=== PATIENT | female | born 1940 | race Caucasian/White ===

== ENCOUNTER → 2020-01-15 11:27 | Outpatient (BNVA) | payer MEDICARE, OTHER, SELFPAY | PROVIDERS: PCP Nurse Practitioner Family; Visit Provider Nurse Practitioner Family | DX: Z20.828 Contact with and (suspected) exposure to other viral communicable diseases (principal) | CPT/HCPCS: 87635 ==

== ENCOUNTER 2020-01-17 11:25 | Inpatient (IN) | payer MEDICARE, OTHER, SELFPAY ==
--- NOTE | 2020-01-17 11:35 | XRR_ITS ---
PROCEDURE INFORMATION: Exam: XR Chest, 1 View Exam date and time: 01/17/2020 11:36 AM Age: 79 years old Clinical indication: Fever TECHNIQUE: Imaging protocol: XR of the chest Views: 1 view. COMPARISON: No relevant prior studies available. FINDINGS: Lungs: Moderately hyperaerated lungs consistent with deep inspiratory effort vs significant reactive airway disease vs moderate COPD . Pleural space: Unremarkable. No pleural effusion. No pneumothorax. Heart/Mediastinum: Unremarkable. No cardiomegaly. Vasculature: Calcification of the thoracic aorta and/or great vessels consistent with atherosclerotic vessel disease. Bones/joints: Unremarkable. XR/XR chest 1V portable [id number] IMPRESSION: Moderately hyperaerated lungs consistent with deep inspiratory effort vs significant reactive airway disease vs moderate COPD .
[2020-01-17 11:39] VITALS: BP 108/46; PULSE 95; RESP 18; TEMP 36.7; O2SAT 95; BMI 24.0
--- NOTE | 2020-01-17 11:43 | W.ED.FEVER ---
HPI - Fever General: Chief Complaint: Fever Stated Complaint: TEMP, FATIGUE Time Seen by Provider: 01/17/20 11:33 Source: patient Mode of arrival: ambulatory Limitations: no limitations History of Present Illness: HPI Narrative: 79-year-old female who has a fever over the last week. She states she had a fever up to 103 along with generalized body aches and some weakness. She denies any cough. She denies any dysuria. She denies any chest or abdominal pain. She states she just felt weak and ill. She was seen 2 days ago and had a negative COVID test. Patient states that overnight she felt lightheaded and had some low blood pressures. Patient is normotensive here with normal vitals here. Associated symptoms: Deny abdominal pain, chest pain, diarrhea, dysuria, nausea or vomiting Review of Systems Const: Reports: fever(s) Eyes: Denies: blurry vision or eye discomfort ENMT: Denies: throat pain or dental pain Card: Denies: chest pain Resp: Denies: dyspnea GI: Denies: abdominal pain, nausea, vomiting or diarrhea : Denies: dysuria Musc: Denies: neck pain or back pain Skin/Breast: Denies: rash Neuro: Reports: weakness in extremities Psych: Denies: depression Tato/Lymph: Denies: easy bruising All/Imm: Denies: urticaria PFSH ED PFSH: Medical History (Updated 01/17/20 @ 15:11 by Laila Santos MD) Abdominal aortic aneurysm (AAA) 3.0 cm to 5.0 cm in diameter in female Breast cancer, right Emphysema lung Surgical History (Updated 01/17/20 @ 15:06 by Jamar Matt MD) H/O mastectomy Social History (Updated 01/17/20 @ 10:16 by Fabi Baxter LPN) Smoking and tobacco status: never smoked Alcohol intake: never Physical Exam Const: COMMON NORMALS: no acute distress, patient oriented x3 and healthy appearing HENMT: COMMON NORMALS: normocephalic and atraumatic HEAD & SCALP: normocephalic and atraumatic Eye: COMMON NORMALS: Equal, round and reactive pupils present and EOMs intact bilaterally PUPIL: Yes Equal, round and reactive pupils present Neck/C-Spine: COMMON NORMALS: full ROM and supple Chest: COMMONS NORMALS: normal inspection of the chest and normal palpation of entire chest wall Resp: COMMON NORMALS: normal respiratory effort, No retractions, No use of accessory muscles and clear to auscultation bilaterally AUSCULTATION: clear to auscultation bilaterally Cardio: COMMON NORMALS: regular rate, regular rhythm and No murmurs present (Cardio) RATE: regular rate RHYTHM: regular rhythm GI: COMMON NORMALS: Normal to inspection, nondistended, normoactive bowel sounds present, Soft to palpation, non-tender and no masses PALPATION: Yes Soft to palpation Extremity: COMMON NORMALS: normal to inspection and full ROM Neuro: COMMON NORMALS: patient oriented x3, moves all extremities and no focal motor deficits Psych: COMMON NORMALS: mental status grossly normal, Normal thought process present and cooperative THOUGHT PROCESS: Normal thought process present Skin: COMMON NORMALS: no rashes or lesions noted and no wounds GENERAL SKIN EXAM: no rashes or lesions noted Course Vital Signs: Vital signs: Vital Signs Temperature 98.1 F 01/17/20 11:39 Pulse Rate 104 H 01/17/20 13:47 Respiratory Rate 16 01/17/20 13:47 Blood Pressure 121/50 01/17/20 13:47 Pulse Oximetry 97 01/17/20 13:47 MDM - Fever MDM Narrative: Medical decision making narrative: 79-year-old female who presents here with a fever. Patient had a recent negative COVID test 2 days ago. Patient here has pancytopenia. I did ewing scan her looking for possible cancer and it was negative. I spoke to hospitalist will admit and follow blood cultures. Patient started on antibiotics. She has been stable here with normal blood pressures. Lab Data: Labs: Lab Results 01/17/20 01/17/20 01/17/20 Range/Units 11:55 11:55 11:55 WBC 1.8 L (4.0-10.0) 10^3/ uL RBC 4.04 L (4.1-5.3) 10^6/u L Hgb 11.9 (11.5-15.3) g/dL Hct 36.6 L (37.0-47.0) % MCV 90.6 (81-99) fL MCH 29.5 (28.0-34.0) pg MCHC 32.5 (30.0-36.0) g/dL RDW 13.1 (12.1-15.1) % Plt Count 61 L (130-400) 10^3/c mm MPV 12.2 H (7.4-10.4) fL Neut % (Auto) 92.2 % Lymph % (Auto) 5.5 % [place] % (Auto) 1.1 % Eos % (Auto) 0.0 % Baso % (Auto) 0.6 % Neut # (Auto) 1.67 L (1.8-7.7) 10^3/u L Lymph # (Auto) 0.1 L (0.8-4.8) 10^3/u L [place] # (Auto) 0.0 L (0.2-0.9) 10^3/u L Eos # (Auto) 0.0 (0.0-0.8) 10^3/u L Baso # (Auto) 0.0 (0.0-0.1) 10^3/u L Nucleated RBC % (a uto) 0 % Nucleated RBCs # 0.0 /100WBC Sodium 131 L (136-145) mmol/L Potassium 3.3 L (3.5-5.1) mmol/L Chloride 96 L (98-107) mmol/L Carbon Dioxide 25 (22-29) mmol/L Anion Gap 13.3 (5-19) BUN 18 (8-23) mg/dL Creatinine 0.8 (0.5-0.9) mg/dL GFR Calculation Not Reportable Glucose 132 H (65-115) mg/dL Calculated Osmolal ity 276 L (285-295) mOsm/k g Lactate 1.5 (0.5-2.2) mmol/L Calcium 8.5 (8.5-10.5) mg/dL Total Bilirubin 2.0 H (0.15-1.2) mg/dL AST 806 H (0-32) U/L ALT 349 H (0-33) U/L Alkaline Phosphata se 462 H (35-105) IU/L Total Protein 6.4 L (6.6-8.7) g/dL Albumin 3.7 (3.5-5.2) g/dL Globulin 2.7 (1.3-4.6) g/dL Urine Color (Yellow) Urine Appearance (CLEAR) Urine pH (5-7) Ur Specific Gravit y (1.005-1.030) Urine Protein (Negative) Urine Glucose (UA) (Normal) Urine Ketones (Negative) Urine Blood (Negative) Urine Nitrate (Negative) Urine Bilirubin (Negative) Prot Sulfosalicyli c Acd (Negative) Urine Urobilinogen (Negative) mg/dL Ur Leukocyte Sunitha ase (Negative) Urine RBC (0-2) /hpf Urine WBC (0-5) /hpf Ur Squamous Epith Cells (0-5) /hpf Amorphous Sediment /hpf Urine Bacteria (NONE) /hpf Coarse Granular Ca sts /lpf 01/17/20 Range/Units 12:26 WBC (4.0-10.0) 10^3/ uL RBC (4.1-5.3) 10^6/u L Hgb (11.5-15.3) g/dL Hct (37.0-47.0) % MCV (81-99) fL MCH (28.0-34.0) pg MCHC (30.0-36.0) g/dL RDW (12.1-15.1) % Plt Count (130-400) 10^3/c mm MPV (7.4-10.4) fL Neut % (Auto) % Lymph % (Auto) % [place] % (Auto) % Eos % (Auto) % Baso % (Auto) % Neut # (Auto) (1.8-7.7) 10^3/u L Lymph # (Auto) (0.8-4.8) 10^3/u L [place] # (Auto) (0.2-0.9) 10^3/u L Eos # (Auto) (0.0-0.8) 10^3/u L Baso # (Auto) (0.0-0.1) 10^3/u L Nucleated RBC % (a uto) % Nucleated RBCs # /100WBC Sodium (136-145) mmol/L Potassium (3.5-5.1) mmol/L Chloride (98-107) mmol/L Carbon Dioxide (22-29) mmol/L Anion Gap (5-19) BUN (8-23) mg/dL Creatinine (0.5-0.9) mg/dL GFR Calculation Glucose (65-115) mg/dL Calculated Osmolal ity (285-295) mOsm/k g Lactate (0.5-2.2) mmol/L Calcium (8.5-10.5) mg/dL Total Bilirubin (0.15-1.2) mg/dL AST (0-32) U/L ALT (0-33) U/L Alkaline Phosphata se (35-105) IU/L Total Protein (6.6-8.7) g/dL Albumin (3.5-5.2) g/dL Globulin (1.3-4.6) g/dL Urine Color Dark yellow (Yellow) Urine Appearance Cloudy (CLEAR) Urine pH 5 (5-7) Ur Specific Gravit y 1.015 (1.005-1.030) Urine Protein 1+ H (Negative) Urine Glucose (UA) Norm (Normal) Urine Ketones Negative (Negative) Urine Blood Neg (Negative) Urine Nitrate Negative (Negative) Urine Bilirubin 1+ H (Negative) Prot Sulfosalicyli c Acd Negative (Negative) Urine Urobilinogen 1 H (Negative) mg/dL Ur Leukocyte Sunitha ase Negative (Negative) Urine RBC 0-4 H (0-2) /hpf Urine WBC None (0-5) /hpf Ur Squamous Epith Cells 5-10 H (0-5) /hpf Amorphous Sediment 1+ /hpf Urine Bacteria 1+ H (NONE) /hpf Coarse Granular Ca sts Too numerous to c nt H /lpf Imaging Data^: CT Chest: Radiologist's impression: [place] [address] CT Scan Report Signed Patient: Deb Adler Unit #: [id number] : 1940 Age/Sex: 79 / F ADM Date: 01/17/20 Loc: ER Room/Bed: Attending Dr: Ordering Provider/Ordering MD: Laila Santos MD Date of Service: 01/17/20 Procedure(s): CT angio chest w abd pel w con Accession Number(s): [id number] Report Number: [id number] PROCEDURE INFORMATION: Exam: CT Angiography Chest With Contrast Exam date and time: 01/17/2020 1:50 PM Age: 79 years old Clinical indication: Prior surgery; Surgery date: 6+ months; Surgery type: R mast, hyst; Patient HX: C/O persistent fever TECHNIQUE: Imaging protocol: Computed tomographic angiography of the chest with intravenous contrast. 3D rendering (Not supervised by radiologist): MIP and/or 3D reconstructed images were created by the technologist. Radiation optimization: All CT scans at this facility use at least one of these dose optimization techniques: automated exposure control; mA and/or kV adjustment per patient size (includes targeted exams where dose is matched to clinical indication); or iterative reconstruction. Contrast material: OMNI 350; Contrast volume: 95 ml; Contrast route: INTRAVENOUS (IV); COMPARISON: CR (CHEST, ) 01/17/2020 11:50 AM RADIATION DOSE METRICS: Total DLP (mGy-cm): 1129.39 FINDINGS: Pulmonary arteries: No pulmonary embolus or aortic dissection. Aorta: Unremarkable. No aortic aneurysm. No aortic dissection. Great vessels off aortic arch: Calcification of the thoracic aorta and/or great vessels consistent with atherosclerotic vessel disease. Lungs: Moderate to severe centrilobular emphysema. Pleural space: Unremarkable. No pneumothorax. No pleural effusion. Heart: Severe calcified coronary artery disease. Lymph nodes: Unremarkable. No enlarged lymph nodes. Bones/joints: Moderate thoracic spondylosis. Soft tissues: There are surgical clips over the right axilla with absent right breast shadow consistent with previous right mastectomy. Right mastectomy. IMPRESSION: 1. Moderate to severe centrilobular emphysema. 2. Severe calcified coronary artery disease. 3. No pulmonary embolus or aortic dissection. 4. Right mastectomy. PROCEDURE INFORMATION: Exam: CT Abdomen And Pelvis With Contrast Exam date and time: 01/17/2020 1:50 PM Age: 79 years old Clinical indication: Prior surgery; Surgery date: 6+ months; Surgery type: R mast, hyst; Patient HX: C/O persistent fever TECHNIQUE: Imaging protocol: Computed tomography of the abdomen and pelvis with intravenous contrast. Radiation optimization: All CT scans at this facility use at least one of these dose optimization techniques: automated exposure control; mA and/or kV adjustment per patient size (includes targeted exams where dose is matched to clinical indication); or iterative reconstruction. Contrast material: OMNI 350; Contrast volume: 95 ml; Contrast route: INTRAVENOUS (IV); COMPARISON: CR (CHEST, ) 01/17/2020 11:50 AM RADIATION DOSE METRICS: Total DLP (mGy-cm): 1129.39 FINDINGS: Liver: Normal. No mass. Gallbladder and bile ducts: Normal. No calcified stones. No ductal dilation. Pancreas: Normal. No ductal dilation. Spleen: One or more accessory splenules. Adrenals: Normal. No mass. Kidneys and ureters: One or more focal cortical defects in the left kidney, representing sequela from previous infection or infarction. Stomach and bowel: Moderate diverticulosis. Appendix: No evidence of appendicitis. Intraperitoneal space: Unremarkable. No free air. No significant fluid collection. Vasculature: Calcification of the abdominal aorta and/or iliac arteries consistent with atherosclerotic vessel disease. 3.2 cm fusiform infrarenal abdominal aortic aneurysm without rupture. Lymph nodes: Unremarkable. No enlarged lymph nodes. Urinary bladder: Unremarkable as visualized. Reproductive: Status post hysterectomy. Bones/joints: Unremarkable. No acute fracture. Soft tissues: Unremarkable. CT/CT angio chest w abd pel w con IMPRESSION: 3.2 cm fusiform infrarenal abdominal aortic aneurysm without rupture. Discharge Plan Discharge Patient Disposition: Admitted As Inpatient Clinical Impression: Thrombocytopenia, Leukopenia Fever Qualifiers: Fever type: unspecified Qualified Code(s): R50.9 - Fever, unspecified Condition: Stable Coding Level of Care Code ED Cigarette Vendor for Chg Fwd Exam Comprehensive
[2020-01-17] MEDS: sodium chloride 0.9% 1,000 ML 999 ML IV (12:05)
[2020-01-17 12:16] VITALS: BP 97/38; PULSE 92; RESP 18; O2SAT 93
[2020-01-17 12:19] LABS: Basophils % 0.6 %; Hematocrit 36.6 % (37.0-47.0); Hemoglobin 11.9 g/dL (11.5-15.3); Lymphocytes # 0.1 10^3/uL (0.8-4.8); Lymphocytes % 5.5 %; Mean Corpuscular HGB Conc 32.5 g/dL (30.0-36.0); Mean Corpuscular Hemoglobin 29.5 pg (28.0-34.0); Mean Corpuscular Volume 90.6 fL (81-99); Mean Platelet Volume 12.2 fL (7.4-10.4); Monocytes % 1.1 %; Neutrophils # 1.67 10^3/uL (1.8-7.7); Neutrophils % 92.2 %; Nucleated Red Blood Cells % 0 %; Platelet Count 61 10^3/cmm (130-400); Red Blood Count 4.04 10^6/uL (4.1-5.3); Red Cell Distribution Width 13.1 % (12.1-15.1); White Blood Count 1.8 10^3/uL (4.0-10.0)
[2020-01-17 12:36] LABS: Lactate (Lactic Acid level) 1.5 mmol/L (0.5-2.2)
[2020-01-17 12:37] LABS: Alanine Aminotransferase 349 U/L (0-33); Albumin Level 3.7 g/dL (3.5-5.2); Alkaline Phosphatase 462 IU/L (35-105); Anion Gap 13.3 (5-19); Blood Urea Nitrogen 18 mg/dL (8-23); Calcium 8.5 mg/dL (8.5-10.5); Carbon Dioxide 25 mmol/L (22-29); Chloride 96 mmol/L (98-107); Creatinine Clr Calc Pharmacy 53.2684; Globulin 2.7 g/dL (1.3-4.6); Glucose 132 mg/dL (65-115); Osmolality Calculated 276 mOsm/kg (285-295); Potassium 3.3 mmol/L (3.5-5.1); Sodium 131 mmol/L (136-145); Total Protein 6.4 g/dL (6.6-8.7)
[2020-01-17 12:49] LABS: Aspartate Amino Transferase 806 U/L (0-32)
[2020-01-17 12:52] LABS: Slide Review Slide Review Perform
[2020-01-17 12:57] LABS: Add Urine Microscopic? YES; Bilirubin Urine 1+ (Negative); Blood Urine Neg (Negative); Glucose Urine UA Norm (Normal); Ketones Urine Negative (Negative); Leukocyte Esterase Urine Negative (Negative); Nitrate Urine Negative (Negative); Protein Urine 1+ (Negative); Specific Gravity, Urine 1.015 (1.005-1.030); Sulfosalicylic Acid Urine Negative (Negative); Urine Appearance Cloudy (CLEAR); Urine Color Dark Yellow (Yellow); Urobilinogen Urine 1 mg/dL (Negative); pH Urine 5 (5-7)
--- NOTE | 2020-01-17 13:07 | CTR_ITS ---
PROCEDURE INFORMATION: Exam: CT Angiography Chest With Contrast Exam date and time: 01/17/2020 1:50 PM Age: 79 years old Clinical indication: Prior surgery; Surgery date: 6+ months; Surgery type: R mast, hyst; Patient HX: C/O persistent fever TECHNIQUE: Imaging protocol: Computed tomographic angiography of the chest with intravenous contrast. 3D rendering (Not supervised by radiologist): MIP and/or 3D reconstructed images were created by the technologist. Radiation optimization: All CT scans at this facility use at least one of these dose optimization techniques: automated exposure control; mA and/or kV adjustment per patient size (includes targeted exams where dose is matched to clinical indication); or iterative reconstruction. Contrast material: OMNI 350; Contrast volume: 95 ml; Contrast route: INTRAVENOUS (IV); COMPARISON: CR (CHEST, ) 01/17/2020 11:50 AM RADIATION DOSE METRICS: Total DLP (mGy-cm): 1129.39 FINDINGS: Pulmonary arteries: No pulmonary embolus or aortic dissection. Aorta: Unremarkable. No aortic aneurysm. No aortic dissection. Great vessels off aortic arch: Calcification of the thoracic aorta and/or great vessels consistent with atherosclerotic vessel disease. Lungs: Moderate to severe centrilobular emphysema. Pleural space: Unremarkable. No pneumothorax. No pleural effusion. Heart: Severe calcified coronary artery disease. Lymph nodes: Unremarkable. No enlarged lymph nodes. Bones/joints: Moderate thoracic spondylosis. Soft tissues: There are surgical clips over the right axilla with absent right breast shadow consistent with previous right mastectomy. Right mastectomy. IMPRESSION: 1. Moderate to severe centrilobular emphysema. 2. Severe calcified coronary artery disease. 3. No pulmonary embolus or aortic dissection. 4. Right mastectomy. PROCEDURE INFORMATION: Exam: CT Abdomen And Pelvis With Contrast Exam date and time: 01/17/2020 1:50 PM Age: 79 years old Clinical indication: Prior surgery; Surgery date: 6+ months; Surgery type: R mast, hyst; Patient HX: C/O persistent fever TECHNIQUE: Imaging protocol: Computed tomography of the abdomen and pelvis with intravenous contrast. Radiation optimization: All CT scans at this facility use at least one of these dose optimization techniques: automated exposure control; mA and/or kV adjustment per patient size (includes targeted exams where dose is matched to clinical indication); or iterative reconstruction. Contrast material: OMNI 350; Contrast volume: 95 ml; Contrast route: INTRAVENOUS (IV); COMPARISON: CR (CHEST, ) 01/17/2020 11:50 AM RADIATION DOSE METRICS: Total DLP (mGy-cm): 1129.39 FINDINGS: Liver: Normal. No mass. Gallbladder and bile ducts: Normal. No calcified stones. No ductal dilation. Pancreas: Normal. No ductal dilation. Spleen: One or more accessory splenules. Adrenals: Normal. No mass. Kidneys and ureters: One or more focal cortical defects in the left kidney, representing sequela from previous infection or infarction. Stomach and bowel: Moderate diverticulosis. Appendix: No evidence of appendicitis. Intraperitoneal space: Unremarkable. No free air. No significant fluid collection. Vasculature: Calcification of the abdominal aorta and/or iliac arteries consistent with atherosclerotic vessel disease. 3.2 cm fusiform infrarenal abdominal aortic aneurysm without rupture. Lymph nodes: Unremarkable. No enlarged lymph nodes. Urinary bladder: Unremarkable as visualized. Reproductive: Status post hysterectomy. Bones/joints: Unremarkable. No acute fracture. Soft tissues: Unremarkable. CT/CT angio chest w abd pel w con IMPRESSION: 3.2 cm fusiform infrarenal abdominal aortic aneurysm without rupture. Radiation Dose CTDIVOL = (mGy): DLP = 1129.39~1129.39 (mGy-cm)
[2020-01-17 13:09] LABS: Bacteria Urine 1+ /hpf; Coarse Granular Casts Urine TOO NUMEROUS TO CNT /lpf; RBC Urine 0-4 /hpf (0-2)
[2020-01-17 13:10] LABS: Add Urine Culture? No; Amorphous Sediment Urine 1+ /hpf
[2020-01-17 13:47] VITALS: BP 121/50; PULSE 104; RESP 16; O2SAT 97
[2020-01-17] MEDS: iohexol 350 mg/mL 100 mL Btl IV (14:16)
[2020-01-17 15:11] LABS: Lipase 45 U/L (13-60)
--- NOTE | 2020-01-17 15:12 | P.HP_ITS ---
Providers/Chief Complaint Chief Complaint: TEMP, FATIGUE History of Present Illness Deb Adler is a 79 year old female with past medical history of breast cancer post mastectomy, cervical cancer many years ago, hyperlipidemia who presents to the ER today with ongoing fevers going up to 103 for last 3 days. Patient states on Sunday that a 6 days ago her symptoms started with some weakness and myalgias. At that point patient and family traveled to [place] at a [place] with the left for 3 days. During that time her symptoms and fevers got worse and by the time they came back on Sunday she was having high fever going up to 103. She is not aware if anybody else is having similar symptoms. Denies any known exposure to COVID-19. She is complaining of frontal headache along with headache behind the eyes without any photophobia,, nausea and one episode of vomiting earlier today morning, 1 episodes of diarrhea earlier today morning. She denies of having any belly pain, dizziness, chest pain, palpitation, difficulty breathing, cough, rash, joint pain, recent trauma. She denies any change in sense of smell, taste, any recent pedicure, manicure, ulcer in mouth, dental work. She gives history of exposure to tick in last 3 weeks. She also gives history of neighbors and brothers having tick fever earlier this year. She recently had COVID PCR done on January 14 which was negative. Blood work in the ER showed a white count of 1.8, hemoglobin of 11.9, platelet count of 61,000, neutropenia of 1.67, sodium of 131, potassium of 3.3, creatinine of 0.8, lactate of 1.5, bilirubin of 2, AST/ALT of 806/349, alkaline phosphatase of 462, total protein of 6.4, albumin of 3.7, UA showing negative nitrite, negative leuk esterase, [address] chest abdomen pelvis with contrast done in the ER showed moderate to severe centrilobular emphysema, no PE, right mastectomy, 3.2 cm fusiform infrarenal abdominal aortic aneurysm without rupture. Review of Systems General: Reports: 10 or more systems reviewed and unremarkable except in HPI and below Const: Reports: fever(s), chills, malaise, night sweats and diaphoresis; Denies: body aches, change in appetite, change in sleep pattern, daytime sleepiness or snoring Eyes: Denies: change in vision, blurry vision, photophobia, eye discomfort or eye discharge ENMT: Denies: throat pain, enlarged tonsils, hoarseness, mouth pain, oral sores, dry mouth, tinnitus, nasal congestion or post nasal drip Card: Denies: chest pain, palpitations, irregular heart rhythm, edema, swelling of feet/ankles, lightheadedness, syncope, pre-syncope, dyspnea on exertion, orthopnea, leg pain with exertion or acrocyanosis Resp: Denies: dyspnea, productive cough, non-productive cough, wheezing, stridor, pain on inspiration, change in phlegm color, hemoptysis or chest congestion GI: Reports: nausea, vomiting and diarrhea; Denies: abdominal pain, hematemesis, coffee ground emesis, dysphagia, heartburn, constipation, bloating, GI cramping, change in bowel habits, pain on defecation, hematochezia or melena : Denies: flank pain, dysuria, urinary frequency, urinary urgency, urinary hesitancy, nocturia or hematuria Musc: Denies: neck pain, back pain, extremity pain, joint pain, joint swelling, joint redness, joint stiffness or limited range of motion Neuro: Reports: headache(s); Denies: numbness in extremities, weakness in extremities, sensory changes, lack of coordination, difficulty walking, frequent falls, dizziness, vertigo, confusion, Slurred speech present, difficulty communicating thoughts or seizure- like activity Psych: Denies: anxiety, depression, mood swings, panic attacks, hopelessness or irritability Endo: Denies: polyuria, polydipsia, tired all the time, cold intolerance, excessive sweating, flushing or heat intolerance Tato/Lymph: Denies: easy bruising or easy bleeding All/Imm: Denies: tongue swelling, facial swelling or acute wheezing Medications/Allergies Home Medications Medication Instructions Recorded Confirmed Last Taken Type simvastatin 20 mg tablet 40 mg PO DAILY tab 01/15/20 01/17/20 01/16/20 History acetaminophen [Tylenol Extra 500 mg PO Q4H PRN 01/17/20 01/17/20 01/17/20 History Strength] atorvastatin 40 mg PO DAILY 01/17/20 01/17/20 01/16/20 History naproxen 500 mg PO BID PRN 01/17/20 01/17/2020 History senna 1 - 2 tab PO PRN PRN 01/17/20 01/17/20 01/17/20 History Allergies Allergy/AdvReac Type Severity Reaction Status Date / Time No Known Allergies Allergy Verified 01/17/20 11:46 PFSH Acute PFSH: Medical History (Updated 01/17/20 @ 15:11 by Laila Santos MD) Abdominal aortic aneurysm (AAA) 3.0 cm to 5.0 cm in diameter in female Breast cancer, right Emphysema lung Surgical History (Updated 01/17/20 @ 15:06 by Jamar Matt MD) H/O mastectomy Social History (Updated 01/17/20 @ 10:16 by Fabi Baxter LPN) Smoking and tobacco status: never smoked Alcohol intake: never Vitals/I&O/Wt Last Vital Signs Temp 98.1 F 01/17/20 11:39 Pulse 104 H 01/17/20 13:47 Resp 16 01/17/20 13:47 BP 121/50 01/17/20 13:47 Pulse Ox 97 01/17/20 13:47 01/17/20 01/17/20 01/17/20 06:59 14:59 22:59 Intake Total 1000 / 1000 Balance 1000 / 1000 Weight last 48 hrs Weight 63.503 kg Physical Exam Narrative: EXAM NARRATIVE: General: No acute distress, AO x3 HEENT: PERRLA, pupils bilaterally equal and reactive Chest: Normal vesicular breath sounds, no added sounds, equal good air entry bilaterally, right mastectomy CVS: S1-S2 regular, no murmurs, no tachycardia, no gallops, no rubs Abdomen: Soft, nontender, no organomegaly, bowel sounds present Neuro: No focal deficits, no facial deformity, AO x3, power 5/5 in all limbs Skin: COMMON NORMALS: no rashes or lesions noted, no wounds, turgor normal and no petechiae; negative for no jaundice Data : 01/17/20 11:55 01/17/20 11:55 Micro: Microbiology 01/17/20 12:23 Blood Culture - Preliminary Blood SPECIMEN COLLECTED 01/17/20 12:20 Blood Culture - Preliminary Blood SPECIMEN COLLECTED A&P Assessment and plan (1) FUO (fever of unknown origin): Status: Acute (2) Thrombocytopenia: Status: Acute (3) Leukopenia: Status: Acute (4) Abdominal aortic aneurysm (AAA) 3.0 cm to 5.0 cm in diameter in female: Status: Acute Additional A&P Information Fever of unknown origin with leukopenia and thrombocytopenia: No active source of infection at present. CT abdomen pelvis already done in the ER. Results appreciated. As per history, blood work etiology of patient's symptoms could be secondary to viral infection, tick infection. Chances of bacterial infection along with meningitis are low at present. Check procalcitonin, d-dimer, LDH, fibrinogen, ferritin, MRSA swab, blood cultures, urine culture, tick panel, ESR, CRP, iron panel, d-dimer, proBNP, TSH. Also check flu panel, [facility] GLO profile though rheumatological reason at this age is very atypical, peripheral smear, CPK, stool studies, sputum culture. For now start patient on ceftriaxone and doxycycline to cover for atypical. Tylenol for fever. Check COVID rapid antigen. Patient did have a PCR done few days ago which was negative. Test does have false negative. Will repeat again. Patient's symptomology and blood work is highly concerning for COVID-19. For now start patient on vitamin C and zinc. Bilirubinemia/elevated liver enzymes: Could be secondary to recurrent infection. CT abdomen pelvis negative for any liver or gallbladder pathology. For now stop the atorvastatin. We will continue to monitor. Hyponatremia: Could be secondary dehydration. IV fluids at 50 cc/h. Check BMP daily. Check other studies like iron panel, ferritin, HbA1c, lipid panel, TSH. Low probability of DVT. Only foot pumps from prophylaxis. Motrin for PUD prophylaxis Full code. Attestations Medical Necessity Statement*: More than 2 midnights for evaluation of fever of unknown origin. Time Spent in Patient Care: Greater than 35 minutes (>than 50% of time spent in counselling and/or direct pt care on unit) . Coding Level of Care Code Acute Plumbing Manager for [facility] Fw Diagnoses FUO (fever of unknown origin) R50.9 Thrombocytopenia D69.6 Leukopenia D72.819 Abdominal aortic aneurysm (AAA) 3.0 cm to 5.0 cm in diameter in female I71.4
[2020-01-17] MEDS: cefTRIAXone 1,000 MG in sodium chloride 0.9% (plus) 50 ML 100 MG IV (15:17)
[2020-01-17 15:42] LABS: D Dimer 10.44 ug/mIFEU (0-0.59)
[2020-01-17] MEDS: azithromycin 500 MG in sodium chloride 0.9% 250 ML 250 MG IV (15:58)
[2020-01-17 16:04] LABS: NT Pro B Type Natriuretic Pept 2937 pg/mL (0-450); Procalcitonin 1.37 ng/mL (0-0.5)
[2020-01-17 16:06] LABS: Creatine Phosphokinase 122 U/L (26-192); Thyroid Stimulating Hormone 1.63 uIU/mL (0.27-4.20)
[2020-01-17 16:15] LABS: C Reactive Protein 187.1 mg/L (0.0-4.9); Iron 26 ug/dL (37-145); Percent Saturation 10.4 % (20-50); Total Iron Binding Capacity 248 mcg/dl; Unsaturated Iron Binding 222 ug/dL (112-347)
[2020-01-17 16:22] VITALS: BP 108/62; PULSE 103; RESP 18; TEMP 37.3; O2SAT 92
[2020-01-17 16:31] VITALS: BP 116/40; PULSE 100; O2SAT 97
[2020-01-17 16:42] LABS: Ferritin 5844 ng/mL (15-150); Lactate Dehydrogenase 1126 U/L (135-214)
[2020-01-17 16:48] LABS: LAB Peripheral Smear Sent for Review
[2020-01-17] MEDS: doxycycline 100 mg Tablet PO (17:28)
[2020-01-17] MEDS: famotidine 20 mg/2 mL INJ IVP (17:29)
[2020-01-17] MEDS: sodium chloride 0.9% 1,000 ML 50 ML IV (17:30)
[2020-01-17 17:51] LABS: Fibrinogen 395 mg/dL (174-498)
[2020-01-17 18:06] LABS: Erythrocyte Sedimentation Rate 20 mm/hr (0-15)
[2020-01-17 18:42] LABS: SARS Covid-2 Antigen Negative (Negative)
[2020-01-17 20:00] VITALS: BP 111/63; PULSE 102; RESP 26; TEMP 37.1; O2SAT 93
[2020-01-18] VITALS (7 sets, daily range): BP systolic 104–145; BP diastolic 58–74; PULSE 90–109; RESP 12–22; TEMP 36.7–38.9; O2SAT 90–94
[2020-01-18] MEDS: acetaminophen 325 mg Tablet 650 MG PO ×2 (01:17→16:55)
[2020-01-18 05:22] LABS: Alanine Aminotransferase 387 U/L (0-33); Albumin Level 2.9 g/dL (3.5-5.2); Alkaline Phosphatase 420 IU/L (35-105); Blood Urea Nitrogen 17 mg/dL (8-23); Calcium 7.9 mg/dL (8.5-10.5); Carbon Dioxide 22 mmol/L (22-29); Chloride 104 mmol/L (98-107); Creatinine Clr Calc Pharmacy 53.2684; Glucose 102 mg/dL (65-115); Osmolality Calculated 288 mOsm/kg (285-295); Sodium 138 mmol/L (136-145); Total Bilirubin 1.3 mg/dL (0.15-1.2); Total Protein 4.9 g/dL (6.6-8.7)
[2020-01-18 05:55] LABS: Aspartate Amino Transferase 1287 U/L (0-32)
[2020-01-18] MEDS: famotidine 20 mg/2 mL INJ IVP ×2 (06:26→17:48)
[2020-01-18] MEDS: cefTRIAXone 1,000 MG in sodium chloride 0.9% (plus) 50 ML 100 MG IV (06:26)
[2020-01-18 08:18] LABS: Basophils % 0.7 %; Hematocrit 34.1 % (37.0-47.0); Lymphocytes # 0.3 10^3/uL (0.8-4.8); Lymphocytes % 17.7 %; Mean Corpuscular HGB Conc 32.3 g/dL (30.0-36.0); Mean Corpuscular Hemoglobin 29.3 pg (28.0-34.0); Mean Corpuscular Volume 90.7 fL (81-99); Mean Platelet Volume 12.6 fL (7.4-10.4); Monocytes # 0.1 10^3/uL (0.2-0.9); Monocytes % 3.4 %; Neutrophils # 1.13 10^3/uL (1.8-7.7); Neutrophils % 76.8 %; Nucleated Red Blood Cells % 0 %; Red Blood Count 3.76 10^6/uL (4.1-5.3); Red Cell Distribution Width 13.6 % (12.1-15.1); White Blood Count 1.5 10^3/uL (4.0-10.0)
[2020-01-18] MEDS: ascorbic acid 500 mg Tablet PO (08:42)
[2020-01-18] MEDS: zinc gluconate 50 mg Tablet PO (08:42)
[2020-01-18] MEDS: doxycycline 100 mg Tablet PO ×2 (08:42→17:48)
[2020-01-18 10:20] LABS: Platelet Count 41 10^3/cmm (130-400); Slide Review Slide Review Perform
[2020-01-18] MEDS: sodium chloride 0.9% 1,000 ML 50 ML IV (13:12)
--- NOTE | 2020-01-18 14:39 | P.PN_ITS ---
Subjective Subjective: Interval history: Patient is lying comfortably in bed. She does have some petechiae. Denies of having any bleeding. T-max in last 24 hours since admission 102.1 Fahrenheit last night. Afebrile since today morning. Labs and vitals noted. Denies of having any nausea, headache, dizziness, palpitation. Did have one episode of vomiting earlier today morning. Vitals/I&O/Wt Last Vital Signs Temp 99.6 F 01/18/20 11:33 Pulse 99 01/18/20 11:33 Resp 22 H 01/18/20 11:33 BP 112/63 01/18/20 11:33 Pulse Ox 93 01/18/20 11:33 01/17/20 01/18/20 01/18/20 22:59 06:59 14:59 Intake Total 406 / 1406 1105 / 1105 Output Total 140 / 140 Balance 406 / 1406 -1 / 1405 965 / 965 Weight last 48 hrs Weight 65.487 kg Weight 63.503 kg Physical Exam Narrative: EXAM NARRATIVE: General: No acute distress, AO x3 HEENT: PERRLA, pupils bilaterally equal and reactive Chest: Normal vesicular breath sounds, no added sounds, equal good air entry bilaterally, right mastectomy CVS: S1-S2 regular, no murmurs, no tachycardia, no gallops, no rubs Abdomen: Soft, nontender, no organomegaly, bowel sounds present Neuro: No focal deficits, no facial deformity, AO x3, power 5/5 in all limbs Skin: COMMON NORMALS: no rashes or lesions noted, no wounds, turgor normal and no petechiae; negative for no jaundice GENERAL SKIN EXAM: no rashes or lesions noted and turgor normal Data : 01/18/20 08:10 01/18/20 04:13 Micro: Microbiology 01/17/20 23:47 Stool Lactoferrin - Final Stool Enteric Pathogens (PCR) - Final Occult Blood (FIT) - Final 01/17/20 18:00 MRSA Culture - Final Nose 01/17/20 12:23 Blood Culture - Preliminary Blood NEGATIVE TO DATE 01/17/20 12:20 Blood Culture - Preliminary Blood NEGATIVE TO DATE 01/17/20 12:26 Urine Culture - Preliminary Urine,Clean Catch 01/17/20 12:26 Bacterial Antigens - Final Urine Kidney 01/17/20 12:26 Legionella Urinary Antigen - Final Urethra A&P Assessment and plan (1) FUO (fever of unknown origin): Status: Acute (2) Thrombocytopenia: Status: Acute (3) Leukopenia: Status: Acute (4) Abdominal aortic aneurysm (AAA) 3.0 cm to 5.0 cm in diameter in female: Status: Acute Additional A&P Information Fever of unknown origin with leukopenia and thrombocytopenia: Hemoglobin stable. No active signs of bleeding. No active source of infection at present. CT abdomen pelvis already done in the ER. Results appreciated. As per history, blood work etiology of patient's symptoms could be secondary to viral infection, tick infection. Chances of bacterial infection along with meningitis are low at present. Some of the blood work sent out yesterday is back. ESR mildly elevated to 20, d-dimer elevated, CRP elevated, ferritin elevated. Pro-Tera elevated the blood cultures have remained negative Flu swab negative, respiratory viral panel awaited. Tick panel awaited. COVID-19 rapid is negative, PCR is awaited. CPK within normal limits which rules out dermatomyositis. Peripheral smear results awaited. For now start patient on ceftriaxone and doxycycline to cover for atypical. Tylenol for fever. Continue with vitamin C and zinc. Bilirubinemia/elevated liver enzymes: Could be secondary to infection. CT abdomen pelvis negative for any liver or gallbladder pathology. For now stop the atorvastatin. Check hepatitis panel. All the symptoms could be secondary to acute hepatitis. Hyponatremia: Resolved. Continue with IV hydration. Hypokalemia: Replaced. Hypocalcemia: Replaced. We will start patient on oral iron supplementation. Low probability of DVT. Only foot pumps from prophylaxis. Pepcid for PUD prophylaxis Full code. GI soft diet. Neutropenic precautions, fall precautions. Attestations Medical Necessity Statement*: Fever of unknown origin, thrombocytopenia, leukopenia, elevated liver enzymes Time Spent in Patient Care: Greater than 35 minutes (>than 50% of time spent in counselling and/or direct pt care on unit) . 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
--- NOTE | 2020-01-18 17:33 | USR_ITS ---
PROCEDURE INFORMATION: Exam: US Duplex Lower Extremity Veins, Bilateral Exam date and time: 01/18/2020 12:08 AM Age: 79 years old Clinical indication: Swelling (edema) of limb; Lower extremity, bilateral; Additional info: R/O dvt TECHNIQUE: Imaging protocol: Real-time duplex ultrasound of the extremities with 2-D contreras scale, color Doppler flow and spectral waveform analysis with image documentation. Complete exam focused on the bilateral lower extremity veins. COMPARISON: No relevant prior studies available. FINDINGS: Right deep veins: Unremarkable. The common femoral, femoral, proximal profunda femoral, popliteal and visualized calf veins are patent without thrombus. Normal Doppler waveforms. Normal compressibility and/or augmentation response. Right superficial veins: Saphenofemoral junction is patent without thrombus. Left deep veins: Unremarkable. The common femoral, femoral, proximal profunda femoral, popliteal and visualized calf veins are patent without thrombus. Normal Doppler waveforms. Normal compressibility and/or augmentation response. Left superficial veins: Saphenofemoral junction is patent without thrombus. Soft tissues: Unremarkable. US/CV venous duplex [facility] [id number] IMPRESSION: No evidence of bilateral deep vein thrombosis.
[2020-01-18 17:48] LABS: Coronavirus Lab Test PTC Negative
[2020-01-18] MEDS: ferrous gluconate 324 mg Tablet PO (17:48)
[2020-01-18] MEDS: potassium chloride premix 40 MEQ/100 ML PREMIX 25 MEQ IV ×2 (17:55→22:42)
[2020-01-18] MEDS: lidocaine 1% INJ 20 mL 5 ML IV ×2 (17:56→22:43)
[2020-01-18 18:20] LABS: Hepatitis A Antibody IgM Non-Reactive (Nonreactive); Hepatitis B Core AB, Total Non-Reactive (Nonreactive); Hepatitis B Surface AB 3.5 (0-8.5); Hepatitis B Surface Antigen Non-Reactive (Nonreactive); Hepatitis C Virus Antibody Non-Reactive (Nonreactive)
--- NOTE | 2020-01-18 18:28 | PC.NURSE ---
number is [phone]
[2020-01-19 04:00] VITALS: BP 125/65; PULSE 66; RESP 17; TEMP 37.3; O2SAT 96
[2020-01-19] MEDS: cefTRIAXone 1,000 MG in sodium chloride 0.9% (plus) 50 ML 100 MG IV (06:10)
[2020-01-19] MEDS: famotidine 20 mg/2 mL INJ IVP (06:10)
[2020-01-19] MEDS: sodium chloride 0.9% 1,000 ML 50 ML IV (06:19)
[2020-01-19 07:15] VITALS: BP 122/68; PULSE 103; RESP 20; TEMP 37.1; O2SAT 90
[2020-01-19] MEDS: doxycycline 100 mg Tablet PO ×2 (08:17→17:30)
[2020-01-19] MEDS: zinc gluconate 50 mg Tablet PO (08:17)
[2020-01-19] MEDS: ferrous gluconate 324 mg Tablet PO ×2 (08:17→17:30)
[2020-01-19] MEDS: ascorbic acid 500 mg Tablet PO (08:17)
--- NOTE | 2020-01-19 08:21 | PC.NURSE ---
Patient sitting on side of bed, denies pain, reports nausea HS but none today, alert and oriented, reports diarrhea with black color, discussed plan of care, verbalized understanding, and denies further questions or concerns. Call light in reach.
--- NOTE | 2020-01-19 10:53 | P.PN_ITS ---
Subjective Subjective: Interval history: Chart reviewed, T-max of 102.1F around midnight yesterday, has been afebrile since, intermittent tachycardia and tachypnea, on room air. Noted continued thrombocytopenia and neutropenia though no labs today. From review of medical record patient had initially presented with myalgia, fever, headache, nausea, anorexia and fatigue and was seen via telemed icine on 01/14 during which time she was tested for COVID-19, this was negative. She was then seen in clinic on 01/16 with complaints of similar symptoms and was referred to the ER for further evaluation. Updated at bedside. 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 Was able to eat some today, appetite has been quite diminished over the past several days. Still quite weak and fatigued. Appears flushed but per her and , this is her normal complexion. Bled a fair bit when IV access lost earlier. Medications: Reviewed: Yes Medication Review Details: Active Medications Generic Name Dose Route Start Last Admin Trade Name Freq PRN Reason Stop Dose Admin Acetaminophen 650 mg 01/17/20 16:22 01/18/20 16:55 Tylenol PO 650 mg Q8H PRN Administration Mild/Mod Pain Or Temp >/= 101 Ascorbic Acid 500 mg 01/18/20 09:00 01/19/20 08:17 Vitamin C PO 500 mg DAILY LAMAR Administration Bisacodyl 10 mg 01/17/20 16:22 Dulcolax PO DAILY PRN CONSTIPATION Doxycycline Monohy drate 100 mg 01/17/20 18:00 01/19/20 08:17 Vibramycin PO 100 mg BID LAMAR Administration Protocol Famotidine 20 mg 01/19/20 17:30 Pepcid Tab PO Q12H LAMAR Ferrous Gluconate 324 mg 01/18/20 18:00 01/19/20 08:17 Ferrous Gluconat e PO 324 mg BIDWM LAMAR Administration Sodium Chloride 1,000 mls @ 50 ml s/hr 01/17/20 16:22 01/19/20 06:19 Sodium Chloride 0.9% IV 50 mls/hr .Q20H LAMAR Administration Ceftriaxone Sodium 1,000 mg/ 50 mls @ 100 mls/ hr 01/18/20 07:00 01/19/20 06:10 Sodium Chloride IV 100 mls/hr Q24H LAMAR Administration Protocol Ibuprofen 400 mg 01/17/20 16:22 Motrin PO Q6H PRN Mild/Mod Pain Or Temp >/= 101 Lactulose 10 gm 01/17/20 16:22 Constulose PO DAILY PRN CONSTIPA Ondansetron HCl 4 mg 01/17/20 16:22 Zofran IVP Q8H PRN vomiting, or N/V if npo Zinc Gluconate 50 mg 01/18/20 09:00 01/19/20 08:17 Zinc Gluconate PO 50 mg DAILY LAMAR Administration No Known Allergies Allergy (Verified 01/17/20 11:46) Vitals/I&O/Wt Last Vital Signs Temp 98.8 F 01/19/20 07:15 Pulse 103 H 01/19/20 07:15 Resp 20 H 01/19/20 07:15 BP 122/68 01/19/20 07:15 Pulse Ox 90 01/19/20 07:15 01/18/20 01/19/20 01/19/20 22:59 06:59 14:59 Intake Total 512 / 1617 855.833 / 2472.833 100 / 100 Output Total 250 / 390 Balance 262 / 1227 855.833 / 2082.833 100 / 100 Weight last 48 hrs Weight 65.771 kg Weight 65.487 kg Weight 63.503 kg Physical Exam Const: COMMON NORMALS: no acute distress, patient oriented x3 and alert GENERAL APPEARANCE: cooperative and comfortable ORIENTATION/CONSCIOUSNESS: Yes awake OTHER: -appears fatigued HENMT: COMMON NORMALS: normocephalic, atraumatic, hearing grossly normal bilaterally and moist oral mucous membranes HEAD & SCALP: normocephalic and atraumatic Eye: COMMON NORMALS: Equal, round and reactive pupils present, EOMs intact bilaterally and conjunctivae normal CONJUNCTIVA: Yes conjunctivae normal PUPIL: Yes Equal, round and reactive pupils present Neck/C-Spine: COMMON NORMALS: full ROM GENERAL: Yes normal visual inspection and Yes trachea midline Resp: COMMON NORMALS: normal respiratory effort, No retractions, No use of accessory muscles and clear to auscultation bilaterally EFFORT & INSPECTION: Yes able to speak in complete sentences, Yes symmetric chest movement and No tachypneic AUSCULTATION: clear to auscultation bilaterally OTHER: -on RA Cardio: COMMON NORMALS: regular rate, regular rhythm, S1 normal heart sound present, S2 normal heart sound present and No murmurs present (Cardio) RATE: regular rate RHYTHM: regular rhythm HEART SOUNDS: S1 normal heart sound present and S2 normal heart sound present GI: COMMON NORMALS: Normal to inspection, nondistended, normoactive bowel sounds present, Soft to palpation and non-tender PALPATION: Yes Soft to palpation Extremity: COMMON NORMALS: normal to inspection, full ROM, no clubbing, cyanosis or edema and no pedal edema Neuro: COMMON NORMALS: patient oriented x3, moves all extremities, no focal motor deficits and no sensory deficits noted SENSORIUM/ORIENTATION: Yes alert Psych: COMMON NORMALS: mental status grossly normal, Normal thought process present, cooperative, normal affect and speech normal SPEECH: Yes normal speech THOUGHT PROCESS: Normal thought process present Skin: COMMON NORMALS: no jaundice and no mottling OTHER: -petechial rash on extremities, cheeks Data : 01/19/20 11:15 01/19/20 11:15 Micro: Microbiology 01/17/20 12:26 Urine Culture - Final Urine,Clean Catch 01/17/20 23:47 Stool Lactoferrin - Final Stool Enteric Pathogens (PCR) - Final Occult Blood (FIT) - Final 01/17/20 18:00 MRSA Culture - Final Nose 01/17/20 12:23 Blood Culture - Preliminary Blood NEGATIVE TO DATE 01/17/20 12:20 Blood Culture - Preliminary Blood NEGATIVE TO DATE A&P Assessment and plan (1) Fever: -Unclear infectious etiology currently -Noted thrombocytopenia and leukopenia; continue to trend; no prior labs to reference -Noted elevated inflammatory markers including procalcitonin, LDH, ferritin, d- dimer -COVID-19 negative, influenza negative. Continue zinc, iron, vitamin C supplementation -PE ruled out on imaging, venous duplex negative for DVT -Noted moderate to severe emphysema, currently on room air, not oxygen dependent at baseline -Autoimmune testing, tick panel pending, infectious mononucleosis screening negative -Continue empiric antibiotic coverage with ceftriaxone and doxycycline -Continue to monitor vital signs, last temp was around midnight yesterday, has been afebrile since -UA: noted sterile bacteria -elevated LFTs, continue to trend, no noted abnormality on imaging, hepatitis panel negative -stool studies negative, FOBT positive Status: Acute Qualifiers: Fever type: unspecified Qualified Code(s): R50.9 - Fever, unspecified (2) Thrombocytopenia: -As noted above -Peripheral smear pending -Noted elevated d-dimer, PE and DVT ruled out Status: Acute (3) Leukopenia: -As noted above, unclear etiology, no baseline to reference -Continue to trend Status: Acute Qualifiers: Leukopenia type: unspecified Qualified Code(s): D72.819 - Decreased white blood cell count, unspecified (4) Abdominal aortic aneurysm (AAA) 3.0 cm to 5.0 cm in diameter in female: -Stable by imaging Status: Chronic Additional A&P Information -Prior history of breast cancer status post mastectomy -Hyponatremia; resolved -Hypocalcemia; replaced, continue to trend -mild normocytic anemia; stable hemoglobin -up with assist, fall precautions -GI ppx with famotidine -DVT ppx with SCDs, no AC due to bleeding risk -Dispo: home -Code status: FULL code Attestations Medical Necessity Statement*: Patient requires hospitalization for continued treatment of fever, pending identification of infectious etiology given noted lab abnormalities including elevation of inflammatory markers, pending completion of work-up. Time Spent in Patient Care: Greater than 35 minutes (>than 50% of time spent in counselling and/or direct pt care on unit) . Coding Level of Care Code Acute Sample Case Porter for [facility] Fwd Exam Comprehensive Diagnoses Fever R50.9 Fever type: unspecified Thrombocytopenia D69.6 Leukopenia D72.819 Leukopenia type: unspecified Abdominal aortic aneurysm (AAA) 3.0 cm to 5.0 cm in diameter in female I71.4
[2020-01-19 11:13] VITALS: BP 116/57; PULSE 105; RESP 18; TEMP 37; O2SAT 91
[2020-01-19 11:24] VITALS: PULSE 105; O2SAT 93
[2020-01-19 11:26] LABS: Basophils # 0.1 10^3/uL (0.0-0.1); Basophils % 2.4 %; Hematocrit 39.3 % (37.0-47.0); Hemoglobin 12.5 g/dL (11.5-15.3); Lymphocytes # 1.5 10^3/uL (0.8-4.8); Lymphocytes % 47.1 %; Mean Corpuscular HGB Conc 31.8 g/dL (30.0-36.0); Mean Corpuscular Hemoglobin 29.6 pg (28.0-34.0); Mean Corpuscular Volume 93.1 fL (81-99); Mean Platelet Volume 11.2 fL (7.4-10.4); Monocytes # 0.2 10^3/uL (0.2-0.9); Monocytes % 5.8 %; Neutrophils # 1.45 10^3/uL (1.8-7.7); Neutrophils % 44.4 %; Nucleated Red Blood Cells % 0 %; Platelet Count 65 10^3/cmm (130-400); Red Blood Count 4.22 10^6/uL (4.1-5.3); Red Cell Distribution Width 14.1 % (12.1-15.1); White Blood Count 3.3 10^3/uL (4.0-10.0)
[2020-01-19 11:49] LABS: Alanine Aminotransferase 290 U/L (0-33); Albumin Level 2.8 g/dL (3.5-5.2); Alkaline Phosphatase 476 IU/L (35-105); Anion Gap 13.3 (5-19); Aspartate Amino Transferase 592 U/L (0-32); Blood Urea Nitrogen 14 mg/dL (8-23); Calcium 8.7 mg/dL (8.5-10.5); Carbon Dioxide 22 mmol/L (22-29); Chloride 100 mmol/L (98-107); Globulin 2.7 g/dL (1.3-4.6); Glucose 128 mg/dL (65-115); Osmolality Calculated 274 mOsm/kg (285-295); Potassium 4.3 mmol/L (3.5-5.1); Sodium 131 mmol/L (136-145); Total Bilirubin 0.6 mg/dL (0.15-1.2); Total Protein 5.5 g/dL (6.6-8.7)
[2020-01-19 11:57] LABS: Lyme AB Screen <0.90 index
[2020-01-19 12:33] LABS: Slide Review Slide Review Perform
[2020-01-19 13:27] LABS: Anti-Double Strand DNA AB 1 IU/mL; Jo-1 Antibody <1.0 NEG AI (<1.0 NEG); SM/RNP Antibodies <1.0 NEG AI (<1.0 NEG); SS-B/LA IGG <1.0 NEG AI (<1.0 NEG); Scleroderma Ab(Scl-70) Ab <1.0 NEG AI (<1.0 NEG); Ss-A/Ro Igg <1.0 NEG AI (<1.0 NEG)
[2020-01-19 14:58] LABS: Monoscreen Negative (Negative)
[2020-01-19 16:00] VITALS: BP 119/79; PULSE 94; RESP 16; TEMP 37.1; O2SAT 91
[2020-01-19] MEDS: famotidine 20 mg Tablet PO (17:30)
[2020-01-19 20:00] VITALS: BP 128/71; PULSE 84; RESP 16; TEMP 37.2; O2SAT 90
[2020-01-20] VITALS: BP 132/73; PULSE 101; RESP 17; TEMP 37.2; O2SAT 90
[2020-01-20 04:00] VITALS: BP 134/81; PULSE 95; RESP 17; TEMP 36.9; O2SAT 90
[2020-01-20 05:36] LABS: Basophils # 0.1 10^3/uL (0.0-0.1); Basophils % 1.3 %; Hematocrit 33.6 % (37.0-47.0); Hemoglobin 10.9 g/dL (11.5-15.3); Lymphocytes # 3.7 10^3/uL (0.8-4.8); Lymphocytes % 53.7 %; Mean Corpuscular HGB Conc 32.4 g/dL (30.0-36.0); Mean Corpuscular Volume 89.4 fL (81-99); Mean Platelet Volume 12.4 fL (7.4-10.4); Monocytes # 1.4 10^3/uL (0.2-0.9); Monocytes % 20.7 %; Neutrophils # 1.61 10^3/uL (1.8-7.7); Neutrophils % 23.7 %; Nucleated Red Blood Cells % 0 %; Platelet Count 49 10^3/cmm (130-400); Red Blood Count 3.76 10^6/uL (4.1-5.3); Red Cell Distribution Width 14.1 % (12.1-15.1); White Blood Count 6.8 10^3/uL (4.0-10.0)
[2020-01-20 05:57] LABS: Alanine Aminotransferase 218 U/L (0-33); Albumin Level 2.6 g/dL (3.5-5.2); Alkaline Phosphatase 382 IU/L (35-105); Anion Gap 10.5 (5-19); Aspartate Amino Transferase 410 U/L (0-32); Blood Urea Nitrogen 14 mg/dL (8-23); Calcium 7.9 mg/dL (8.5-10.5); Carbon Dioxide 23 mmol/L (22-29); Chloride 100 mmol/L (98-107); Globulin 2.3 g/dL (1.3-4.6); Glucose 106 mg/dL (65-115); Osmolality Calculated 271 mOsm/kg (285-295); Potassium 3.5 mmol/L (3.5-5.1); Sodium 130 mmol/L (136-145); Total Bilirubin 0.6 mg/dL (0.15-1.2); Total Protein 4.9 g/dL (6.6-8.7)
[2020-01-20] MEDS: sodium chloride 0.9% 1,000 ML 50 ML IV (06:18)
[2020-01-20] MEDS: famotidine 20 mg Tablet PO ×2 (06:18→17:02)
[2020-01-20] MEDS: cefTRIAXone 1,000 MG in sodium chloride 0.9% (plus) 50 ML 100 MG IV (06:18)
[2020-01-20 07:24] LABS: Slide Review Slide Review Perform
[2020-01-20 07:42] VITALS: BP 127/69; PULSE 92; RESP 18; TEMP 36.7; O2SAT 92
[2020-01-20] MEDS: ferrous gluconate 324 mg Tablet PO ×2 (07:54→17:03)
[2020-01-20] MEDS: doxycycline 100 mg Tablet PO ×2 (07:54→17:02)
[2020-01-20] MEDS: zinc gluconate 50 mg Tablet PO (07:54)
[2020-01-20] MEDS: ascorbic acid 500 mg Tablet PO (07:54)
--- NOTE | 2020-01-20 09:19 | PM.PN ---
Subjective Subjective: Interval history: Hemodynamically stable and afebrile overnight, and normalized, slight drop in hemoglobin which is likely dilutional, stable platelet count, no acute bleeding. LFTs trending down. Peripheral smear pending. Medications: Reviewed: Yes Medication Review Details: Active Medications Generic Name Dose Route Start Last Admin Trade Name Freq PRN Reason Stop Dose Admin Acetaminophen 650 mg 01/17/20 16:22 01/18/20 16:55 Tylenol PO 650 mg Q8H PRN Administration Mild/Mod Pain Or Temp >/= 101 Ascorbic Acid 500 mg 01/18/20 09:00 01/20/20 07:54 Vitamin C PO 500 mg DAILY LAMAR Administration Bisacodyl 10 mg 01/17/20 16:22 Dulcolax PO DAILY PRN CONSTIPATION Doxycycline Monohy drate 100 mg 01/17/20 18:00 01/20/20 07:54 Vibramycin PO 100 mg BID LAMAR Administration Protocol Famotidine 20 mg 01/19/20 17:30 01/20/20 06:18 Pepcid Tab PO 20 mg Q12H LAMAR Administration Ferrous Gluconate 324 mg 01/18/20 18:00 01/20/20 07:54 Ferrous Gluconat e PO 324 mg BIDWM LAMAR Administration Ceftriaxone Sodium 1,000 mg/ 50 mls @ 100 mls/ hr 01/18/20 07:00 01/20/20 06:18 Sodium Chloride IV 100 mls/hr Q24H LAMAR Administration Protocol Lactulose 10 gm 01/17/20 16:22 Constulose PO DAILY PRN CONSTIPA Ondansetron HCl 4 mg 01/17/20 16:22 Zofran IVP Q8H PRN vomiting, or N/V if npo Zinc Gluconate 50 mg 01/18/20 09:00 01/20/20 07:54 Zinc Gluconate PO 50 mg DAILY LAMAR Administration No Known Allergies Allergy (Verified 01/17/20 11:46) Vitals/I&O/Wt Last Vital Signs Temp 98.1 F 01/20/20 07:42 Pulse 92 01/20/20 07:42 Resp 18 01/20/20 07:42 BP 127/69 01/20/20 07:42 Pulse Ox 92 01/20/20 07:42 01/19/20 01/20/20 01/20/20 22:59 06:59 14:59 Intake Total 440 / 640 1000 / 1640 240 / 240 Balance 440 / 640 1000 / 1640 240 / 240 Weight last 48 hrs Weight 66.134 kg Weight 65.771 kg Physical Exam Const: COMMON NORMALS: no acute distress, patient oriented x3 and alert GENERAL APPEARANCE: cooperative and comfortable ORIENTATION/CONSCIOUSNESS: Yes awake OTHER: -appears fatigued HENMT: COMMON NORMALS: normocephalic, atraumatic, hearing grossly normal bilaterally and moist oral mucous membranes HEAD & SCALP: normocephalic and atraumatic Eye: COMMON NORMALS: Equal, round and reactive pupils present, EOMs intact bilaterally and conjunctivae normal CONJUNCTIVA: Yes conjunctivae normal PUPIL: Yes Equal, round and reactive pupils present Neck/C-Spine: COMMON NORMALS: full ROM GENERAL: Yes normal visual inspection and Yes trachea midline Resp: COMMON NORMALS: normal respiratory effort, No retractions, No use of accessory muscles and clear to auscultation bilaterally EFFORT & INSPECTION: Yes able to speak in complete sentences, Yes symmetric chest movement and No tachypneic AUSCULTATION: clear to auscultation bilaterally OTHER: -on RA Cardio: COMMON NORMALS: regular rate, regular rhythm, S1 normal heart sound present, S2 normal heart sound present and No murmurs present (Cardio) RATE: regular rate RHYTHM: regular rhythm HEART SOUNDS: S1 normal heart sound present and S2 normal heart sound present GI: COMMON NORMALS: Normal to inspection, nondistended, normoactive bowel sounds present, Soft to palpation and non-tender PALPATION: Yes Soft to palpation Extremity: COMMON NORMALS: normal to inspection, full ROM, no clubbing, cyanosis or edema and no pedal edema Neuro: COMMON NORMALS: patient oriented x3, moves all extremities, no focal motor deficits and no sensory deficits noted SENSORIUM/ORIENTATION: Yes alert Psych: COMMON NORMALS: mental status grossly normal, Normal thought process present, cooperative, normal affect and speech normal SPEECH: Yes normal speech THOUGHT PROCESS: Normal thought process present Skin: COMMON NORMALS: no jaundice and no mottling OTHER: -petechial rash on extremities, cheeks Data : 01/20/20 04:55 01/20/20 04:55 Micro: Microbiology 01/17/20 23:47 Stool Lactoferrin - Final Stool Enteric Pathogens (PCR) - Final Parasite Antigen Panel - Final Occult Blood (FIT) - Final 01/17/20 12:26 Urine Culture - Final Urine,Clean Catch A&P Assessment and plan (1) Fever: -Unclear infectious etiology currently -Noted thrombocytopenia with stable platelet count, no acute/active bleeding, leukopenia resolved; continue to trend; no prior labs to reference -Noted elevated inflammatory markers including procalcitonin, LDH, ferritin, d-dimer -COVID-19 negative, influenza negative. Continue zinc, iron, vitamin C supplementation -PE ruled out on imaging, venous duplex negative for DVT -Noted moderate to severe emphysema, currently on room air, not oxygen dependent at baseline -Autoimmune testing, tick panel pending, infectious mononucleosis screening negative -Continue empiric antibiotic coverage with ceftriaxone and doxycycline -Continue to monitor vital signs, afebrile x >24 hours -UA: noted sterile bacteria -elevated LFTs, trending down, no noted abnormality on CT, but will order US to assess for splenomegaly as well, hepatitis panel negative -stool studies negative, FOBT positive Status: Acute Qualifiers: Fever type: unspecified Qualified Code(s): R50.9 - Fever, unspecified (2) Thrombocytopenia: -As noted above -Peripheral smear pending -Noted elevated d-dimer, PE and DVT ruled out -No anticoagulation, discontinue ibuprofen Status: Acute (3) Leukopenia: -As noted above, unclear etiology, no baseline to reference -Continue to trend Status: Resolved Qualifiers: Leukopenia type: unspecified Qualified Code(s): D72.819 - Decreased white blood cell count, unspecified (4) Abdominal aortic aneurysm (AAA) 3.0 cm to 5.0 cm in diameter in female: -Stable by imaging Status: Chronic Additional A&P Information -Prior history of breast cancer status post mastectomy -Hyponatremia, continue to monitor -Hypocalcemia; replace, continue to trend, check PTH -mild normocytic anemia; stable hemoglobin, continue to monitor, LDH elevated, check haptoglobin, reticulocyte count, manual CBC to determine if hemolytic component -up with assist, fall precautions -GI ppx with famotidine -DVT ppx with SCDs, no AC due to bleeding risk -Dispo: home -Code status: FULL code Attestations Medical Necessity Statement*: Patient requires hospitalization for continued management of fever, etiology unknown, on continued empiric antibiotic treatment. Time Spent in Patient Care: 16 - 35 minutes (>than 50% of time spent in counselling and/or direct pt care on unit). Coding Level of Care Code Acute [employer] Electrical Person for Chg Fwd Diagnoses Fever R50.9 Fever type: unspecified Thrombocytopenia D69.6 Leukopenia D72.819 Leukopenia type: unspecified Abdominal aortic aneurysm (AAA) 3.0 cm to 5.0 cm in diameter in female I71.4
[2020-01-20] MEDS: calcium gluconate 0.1 gm/mL 10% SDV 10mL 2 GM IVP (10:18)
--- NOTE | 2020-01-20 10:44 | PC.NURSE ---
notified and updated on plan of care, verbalized understanding, denies further questions or concerns.
--- NOTE | 2020-01-20 11:11 | DCPLANNER ---
Pg 2 of IM updated and reviewed with pt. No questions, copy provided.
[2020-01-20 11:37] VITALS: BP 104/61; PULSE 90; RESP 18; TEMP 36.7; O2SAT 90
--- NOTE | 2020-01-20 12:08 | PC.NURSE ---
Patient resting in bed, equal chest rise and fall, no distress noted, call light in reach, side rails up X2.
[2020-01-20 15:19] VITALS: BP 133/69; PULSE 92; RESP 18; TEMP 37.2; O2SAT 90
--- NOTE | 2020-01-20 15:30 | US_ITS ---
WS: [id number] ABDOMINAL ULTRASOUND LIMITED REASON FOR VISIT: significant LFT elevation TECHNIQUE: Grayscale and Doppler ultrasound examination of the abdomen. FINDINGS: Pancreas: No pancreatic mass or pancreatic ductal dilatation. Normal parenchymal echotexture. Abdominal aorta and the IVC were normal. Liver: Liver measures 16.63 cm cm in length. Liver is enlarged. The echotexture is normal. No focal l esions are identified. A small right pleural effusion was identified. Gallbladder: Gallbladder wall thickness measures 1.6 mm. mm. The gallbladder is very markedly distend ed at this time. Right kidney: Right kidney measures 11.07 cm x 4.31 cm x 0.1 cm. The cortical thickness was approxima tely 14 mm. DISCUSSION: Patient had a CT scan on 01/17/2020 which was reviewed. No significant right pleural effusion was identified on that examination. It also appears the gallbla dder has become more distended since that examination. US/US liver [id number] IMPRESSION: A new small right pleural effusion was identified. The gallbladder appears to be more distended than on the previous CT scan.
--- NOTE | 2020-01-20 15:39 | PC.NURSE ---
Dr. Cerna notified liver US completed, new order received for GI soft diet, complete NPO status.
[2020-01-20] MEDS: potassium chloride ER 10 mEq Tablet 20 MEQ PO (16:07)
[2020-01-20] MEDS: FUROsemide 10 mg/mL SDV 2mL 20 MG IVP (16:07)
--- NOTE | 2020-01-20 16:07 | P.PN_ITS ---
Subjective Subjective: Interval history: Patient awake in bed at time of exam this afternoon. She reported feeling slightly better today. Reported that diarrhea had resolved. She reports some swelling in her arms and hands. She denies any chest pain or shortness of breath. Reports that she has not had any further chills Vitals/I&O/Wt Last Vital Signs Temp 99.0 F 01/20/20 15:19 Pulse 92 01/20/20 15:19 Resp 18 01/20/20 15:19 BP 133/69 01/20/20 15:19 Pulse Ox 90 01/20/20 15:19 01/20/20 01/20/20 01/20/20 06:59 14:59 22:59 Intake Total 1000 / 1640 240 / 240 Balance 1000 / 1640 240 / 240 Weight last 48 hrs Weight 66.134 kg Weight 65.771 kg Physical Exam Const: COMMON NORMALS: patient oriented x3 and alert GENERAL APPEARANCE: cooperative ORIENTATION/CONSCIOUSNESS: Yes awake, Yes oriented to person, Yes oriented to place and Yes oriented to time HENMT: COMMON NORMALS: normocephalic and atraumatic HEAD & SCALP: normocephalic and atraumatic Eye: COMMON NORMALS: Equal, round and reactive pupils present PUPIL: Yes Equal, round and reactive pupils present Neck/C-Spine: COMMON NORMALS: supple GENERAL: Yes normal visual inspection Resp: COMMON NORMALS: normal respiratory effort and clear to auscultation bilaterally EFFORT & INSPECTION: Yes able to speak in complete sentences AUSCULTATION: clear to auscultation bilaterally, no rhonchi and no wheezes Cardio: COMMON NORMALS: regular rate, regular rhythm and No murmurs present (Cardio) RATE: regular rate RHYTHM: regular rhythm GI: COMMON NORMALS: Soft to palpation and non-tender INSPECTION: No abdominal distension AUSCULTATION: Yes normoactive bowel sounds PALPATION: Yes Soft to palpation Extremity: COMMON NORMALS: no clubbing, cyanosis or edema and no calf tenderness Neuro: COMMON NORMALS: patient oriented x3, CN's II-XII intact bilaterally, moves all extremities and no focal motor deficits SENSORIUM/ORIENTATION: Yes alert, Yes oriented to person, Yes oriented to place and Yes oriented to time SPEECH: speech normal Psych: COMMON NORMALS: mental status grossly normal and cooperative Skin: COMMON NORMALS: no rashes or lesions noted GENERAL SKIN EXAM: no rashes or lesions noted Data : 01/21/20 03:10 01/21/20 03:10 Micro: Microbiology 01/17/20 23:47 Stool Lactoferrin - Final Stool Enteric Pathogens (PCR) - Final Parasite Antigen Panel - Final Occult Blood (FIT) - Final A&P Assessment and plan (1) Fever: With concern for tickborne illness Remains on doxycycline and Rocephin Patient's neutropenia continues to improve COVID-19 testing is negative, influenza negative Transaminitis with negative hepatitis panel, LFTs continue to trend downward, hyperbilirubinemia has resolved. Tick panel remains pending. [place] screen is negative, respiratory infectious panel remains pending Patient is afebrile today, potential transition to oral antibiotics and discharge tomorrow if continues to show improvement Ultrasound of the liver and spleen remain pending Status: Acute Qualifiers: Fever type: unspecified Qualified Code(s): R50.9 - Fever, unspecified (2) Thrombocytopenia: Platelet count at 49,000 today, peripheral smear ordered and pending, elevated LDH, normal haptoglobin, reticulocyte count ordered Status: Acute (3) Leukopenia: Improving, repeat labs in AM Status: Resolved Qualifiers: Leukopenia type: unspecified Qualified Code(s): D72.819 - Decreased white blood cell count, unspecified (4) Abdominal aortic aneurysm (AAA) 3.0 cm to 5.0 cm in diameter in female: -Stable by imaging Status: Chronic Additional A&P Information Transaminitis: Initially with hyperbilirubinemia that has improved. Initially AST greater than 1200, now improved to 410. Question of tickborne illness contributing to her symptoms. Tick panel remains pending and patient remains on empiric doxycycline. Liver ultrasound ordered today for further evaluation. Hepatitis panel ordered and negative Hyponatremia: Patient appears to be fluid overloaded at this time, will give 1 dose of Lasix with repeat labs in the morning COPD: Severe emphysematous changes on imaging, recommend outpatient pulmonary function testing and close follow-up DVT ppx: SCDs Diet: GI soft Code status: FULL CODE Attestations Medical Necessity Statement*: Further hospitalization due to transaminitis, hyponatremia, neutropenia Coding Level of Care Code Acute [employer] Container Winding Operator for Chg Fwd Exam Comprehensive Diagnoses Fever R50.9 Fever type: unspecified Thrombocytopenia D69.6 Leukopenia D72.819 Leukopenia type: unspecified Abdominal aortic aneurysm (AAA) 3.0 cm to 5.0 cm in diameter in female I71.4
--- NOTE | 2020-01-20 17:08 | PC.NURSE ---
Per Dr. Cerna remove reverse isolation precautions.
[2020-01-20 17:43] LABS: LAB Peripheral Smear Sent for Review
--- NOTE | 2020-01-20 18:19 | PC.NURSE ---
patient has not been compliant with using hat for urine measurement this shift, reinforced with patient and placed hat back in toilet, verbalized understanding.
[2020-01-20 19:53] VITALS: BP 122/72; PULSE 89; RESP 18; TEMP 37.5; O2SAT 90
[2020-01-21] VITALS: BP 127/66; PULSE 91; RESP 18; TEMP 37.2; O2SAT 97
[2020-01-21 03:36] LABS: Hematocrit 31.5 % (37.0-47.0); Hemoglobin 10.5 g/dL (11.5-15.3); Mean Corpuscular HGB Conc 33.3 g/dL (30.0-36.0); Mean Corpuscular Hemoglobin 29.5 pg (28.0-34.0); Mean Corpuscular Volume 88.5 fL (81-99); Mean Platelet Volume 12.9 fL (7.4-10.4); Platelet Count 57 10^3/cmm (130-400); Red Blood Count 3.56 10^6/uL (4.1-5.3); Red Cell Distribution Width 13.7 % (12.1-15.1); White Blood Count 10.5 10^3/uL (4.0-10.0)
[2020-01-21 03:51] LABS: INR 0.84 (0.8-1.2)
[2020-01-21 03:56] LABS: Alanine Aminotransferase 200 U/L (0-33); Albumin Level 2.7 g/dL (3.5-5.2); Alkaline Phosphatase 329 IU/L (35-105); Anion Gap 12.4 (5-19); Aspartate Amino Transferase 374 U/L (0-32); Blood Urea Nitrogen 14 mg/dL (8-23); Calcium 8.7 mg/dL (8.5-10.5); Carbon Dioxide 26 mmol/L (22-29); Chloride 100 mmol/L (98-107); Globulin 2.5 g/dL (1.3-4.6); Glucose 113 mg/dL (65-115); Osmolality Calculated 281 mOsm/kg (285-295); Potassium 3.4 mmol/L (3.5-5.1); Sodium 135 mmol/L (136-145); Total Bilirubin 0.6 mg/dL (0.15-1.2); Total Protein 5.2 g/dL (6.6-8.7)
[2020-01-21 04:00] VITALS: BP 121/65; PULSE 83; RESP 18; TEMP 36.5; O2SAT 91
[2020-01-21 04:16] LABS: Absolute Segmented Neutrophil 3.3 10/cmm (1.6-7.1); Segmented Neutrophils 31 %; Total Cells Counted 100 (0-100)
[2020-01-21 04:17] LABS: Absolute Eosinophils 0.2 10^3/cmm (0.0-0.7); Absolute Neutrophil 4.3 10^3/cmm (1.4-6.5); Band Neutrophils Absolute 1.1 10^3/cmm (0.0-1.2); Eosinophils 2 %; Lymphocytes 41 %; Monocytes Absolute 0.7 10^3/cmm (0.1-0.6); Platelet Estimate Decreased (Normal)
[2020-01-21 04:22] LABS: Calcium 8.6 mg/dL (8.5-10.5); Parathyroid Hormone 11.6 pg/mL (15-65)
[2020-01-21] MEDS: famotidine 20 mg Tablet PO ×2 (04:52→18:07)
[2020-01-21 05:02] LABS: Folate Level 13.3 ng/mL (4.8-37.3); Lactate Dehydrogenase 592 U/L (135-214); Vitamin B12 808 pg/mL (232-1245)
[2020-01-21 06:00] VITALS: BMI 25.1
[2020-01-21] MEDS: cefTRIAXone 1,000 MG in sodium chloride 0.9% (plus) 50 ML 100 MG IV (06:45)
[2020-01-21 07:36] VITALS: BP 128/62; PULSE 83; RESP 18; TEMP 36.9; O2SAT 90
[2020-01-21] MEDS: zinc gluconate 50 mg Tablet PO (10:14)
[2020-01-21] MEDS: doxycycline 100 mg Tablet PO ×2 (10:14→18:07)
[2020-01-21] MEDS: ascorbic acid 500 mg Tablet PO (10:14)
[2020-01-21] MEDS: ferrous gluconate 324 mg Tablet PO ×2 (10:14→18:07)
[2020-01-21] MEDS: bisacodyl 5 mg Tablet 10 MG PO (10:16)
[2020-01-21] MEDS: potassium chloride ER 10 mEq Tablet 20 MEQ PO (11:54)
--- NOTE | 2020-01-21 14:43 | P.PN_ITS ---
Subjective Subjective: Interval history: Patient awake in bed at time of exam today. Reported that she feels fatigued. No chest pain or shortness of breath. Reports that swelling has improved. She stated that she was able to eat breakfast with no abdominal pain or nausea. Continues to pass flatus Medications: Reviewed: Yes Vitals/I&O/Wt Last Vital Signs Temp 98.5 F 01/21/20 07:36 Pulse 83 01/21/20 07:36 Resp 18 01/21/20 07:36 BP 128/62 01/21/20 07:36 Pulse Ox 90 01/21/20 07:36 01/20/20 01/21/20 01/21/20 22:59 06:59 14:59 Intake Total 240 / 480 120 / 120 Output Total 650 / 650 Balance 240 / 480 -650 / -170 120 / 120 Weight last 48 hrs Weight 66.366 kg Weight 66.134 kg Physical Exam Const: COMMON NORMALS: patient oriented x3 and alert GENERAL APPEARANCE: cooperative ORIENTATION/CONSCIOUSNESS: Yes awake, Yes oriented to person, Yes oriented to place and Yes oriented to time HENMT: COMMON NORMALS: normocephalic and atraumatic HEAD & SCALP: normocephalic and atraumatic Eye: COMMON NORMALS: Equal, round and reactive pupils present PUPIL: Yes Equal, round and reactive pupils present Neck/C-Spine: COMMON NORMALS: supple GENERAL: Yes normal visual inspection Resp: COMMON NORMALS: normal respiratory effort and clear to auscultation bilaterally EFFORT & INSPECTION: Yes able to speak in complete sentences AUSCULTATION: clear to auscultation bilaterally, no rhonchi and no wheezes Cardio: COMMON NORMALS: regular rate, regular rhythm and No murmurs present (Cardio) RATE: regular rate RHYTHM: regular rhythm GI: COMMON NORMALS: Soft to palpation and non-tender INSPECTION: No abdominal distension AUSCULTATION: Yes normoactive bowel sounds PALPATION: Yes Soft to palpation Extremity: COMMON NORMALS: no clubbing, cyanosis or edema and no calf tenderness Neuro: COMMON NORMALS: patient oriented x3, CN's II-XII intact bilaterally, moves all extremities and no focal motor deficits SENSORIUM/ORIENTATION: Yes alert, Yes oriented to person, Yes oriented to place and Yes oriented to time SPEECH: speech normal Psych: COMMON NORMALS: mental status grossly normal and cooperative Data : 01/21/20 03:10 01/21/20 03:10 A&P Assessment and plan (1) Fever: With concern for tickborne illness Remains on doxycycline and Rocephin empirically Neutropenia now resolved COVID-19 testing is negative, influenza negative [place] screen negative, tick panel remains pending Had a an evaluation of her right upper quadrant yesterday which shows markedly distended gallbladder, discussed with general surgeon for consultation, Dr. Neff. May be able to transition to oral antibiotics with outpatient follow-up since her labs continue to improve. But will follow up with his recommendations Status: Acute Qualifiers: Fever type: unspecified Qualified Code(s): R50.9 - Fever, unspecified (2) Thrombocytopenia: Platelet count improved today, 57k peripheral smear pending Status: Acute (3) Leukopenia: Resolved Status: Resolved Qualifiers: Leukopenia type: unspecified Qualified Code(s): D72.819 - Decreased white blood cell count, unspecified (4) Abdominal aortic aneurysm (AAA) 3.0 cm to 5.0 cm in diameter in female: -Stable by imaging Status: Chronic Additional A&P Information Transaminitis: Surgery consult for recommendations due to concern for marked GB distention on repeat imaging Hyponatremia: Improved COPD: Severe emphysematous changes on imaging, recommend outpatient pulmonary function testing and close follow-up DVT ppx: SCDs Diet: GI soft Code status: FULL CODE Attestations Medical Necessity Statement*: Requires hospitalization due to transaminitis, hyponatremia, thrombocytopenia Coding Level of Care Code Acute Health Information Internship for Chg Fwd Diagnoses Fever R50.9 Fever type: unspecified Thrombocytopenia D69.6 Leukopenia D72.819 Leukopenia type: unspecified Abdominal aortic aneurysm (AAA) 3.0 cm to 5.0 cm in diameter in female I71.4
[2020-01-21 15:25] LABS: E. Chaffeensis AB IGG <1:64; E. Chaffeensis AB IGM <1:20
[2020-01-21 15:28] VITALS: BP 133/64; PULSE 88; RESP 18; TEMP 36.5; O2SAT 90
[2020-01-21 16:26] LABS: RMSF IGG NOT DETECTED; RMSF IGM NOT DETECTED
[2020-01-21 20:00] VITALS: BP 117/65; PULSE 90; RESP 18; TEMP 37.2; O2SAT 95
[2020-01-22] VITALS: BP 130/70; PULSE 84; RESP 16; TEMP 37.2; O2SAT 90
[2020-01-22 04:00] VITALS: BP 133/74; PULSE 87; RESP 20; TEMP 36.9; O2SAT 91
[2020-01-22] MEDS: famotidine 20 mg Tablet PO (06:44)
[2020-01-22] MEDS: cefTRIAXone 1,000 MG in sodium chloride 0.9% (plus) 50 ML 100 MG IV (06:44)
--- NOTE | 2020-01-22 07:01 | PM.CONSULT ---
Providers/Reason For Consult Consulting Physican/Specialty*: Dr garcia Reason for Consult*: abnormal LFT Attending Physician: Kaelyn Garcia DO History of Present Illness History of Present Illness Deb Adler is a 79 year old female who presented to the ER on 01/17/2020 with fevers for the last 3 days up to 103. Patient was diagnosed with fever and is currently on antibiotics. When she first had high fever she also had nausea and vomiting and she was noted to have elevated LFTs. Patient states that at present she denies any abdominal pain, nausea, vomiting and she usually was able to eat anything she wanted without any difficulty. She did state that her appetite is not back to normal yet. She had a CT abdomen pelvis initially was done for any acute pathology and due to elevated LFTs are ultrasound was performed which showed distended gallbladder, no evidence of cholecystitis or cholelithiasis Review of Systems General: Reports: 10 or more systems reviewed and unremarkable except in HPI and below Meds/Allergies Home Medications and Allergies Home Medications Medication Instructions Recorded Confirmed Last Taken Type simvastatin 20 mg tablet 40 mg PO DAILY tab 01/15/20 01/17/20 01/16/20 History acetaminophen [Tylenol Extra 500 mg PO Q4H PRN 01/17/20 01/17/20 01/17/20 History Strength] atorvastatin 40 mg PO DAILY 01/17/20 01/17/20 01/16/20 History naproxen 500 mg PO BID PRN 01/17/20 01/17/20 01/17/20 History senna 1 - 2 tab PO PRN PRN 01/17/20 01/17/20 01/17/20 History Allergies Allergy/AdvReac Type Severity Reaction Status Date / Time No Known Allergies Allergy Verified 01/17/20 11:46 Current Medications Current Medications Generic Name Dose Route Start Last Admin Trade Name Freq PRN Reason Stop Dose Admin Acetaminophen 650 mg 01/17/20 16:22 01/18/20 16:55 Tylenol PO 650 mg Q8H PRN Administration Mild/Mod Pain Or Temp >/= 101 Ascorbic Acid 500 mg 01/18/20 09:00 01/21/20 10:14 Vitamin C PO 500 mg DAILY LAMAR Administration Bisacodyl 10 mg 01/17/20 16:22 01/21/20 10:16 Dulcolax PO 10 mg DAILY PRN Administration CONSTIPATION Doxycycline Monohydrate 100 mg 10/03/20 18:00 01/21/20 18:07 Vibramycin PO 100 mg BID LAMAR Administration Protocol Famotidine 20 mg 01/19/20 17:30 01/22/20 06:44 Pepcid Tab PO 20 mg Q12H LAMAR Administration Ferrous Gluconate 324 mg 01/18/20 18:00 01/21/20 18:07 Ferrous Gluconate PO 324 mg BIDWM LAMAR Administration Ceftriaxone Sodium 1,000 mg/ 50 mls @ 100 mls/hr 01/18/20 07:00 01/22/20 06:44 Sodium Chloride IV 100 mls/hr Q24H LAMAR Administration Protocol Zinc Gluconate 50 mg 01/18/20 09:00 01/21/20 10:14 Zinc Gluconate PO 50 mg DAILY LAMAR Administration PFSH Acute PFSH: Medical History Abdominal aortic aneurysm (AAA) 3.0 cm to 5.0 cm in diameter in female Breast cancer, right Emphysema lung Surgical History H/O mastectomy Social History Smoking and tobacco status: never smoked Alcohol intake: never Vitals/I&O/Wt Last Vital Signs Temp 98.4 F 01/22/20 04:00 Pulse 87 01/22/20 04:00 Resp 20 H 01/22/20 04:00 BP 133/74 01/22/20 04:00 Pulse Ox 91 01/22/20 04:00 01/21/20 01/22/20 01/22/20 22:59 06:59 14:59 Intake Total 240 / 410 Output Total 0 / 0 0 / 0 Balance 240 / 410 0 / 410 Weight last 48 hrs Weight 145 lb 11.2 oz Weight 146 lb 5 oz Physical Exam Narrative: EXAM NARRATIVE: HEENT: Normocephalic Eye: Sclera /conjunctiva normal LV available at 9 before that debridement Abdomen: Soft to palpation, nontender, nondistended, no guarding or rigidity Neurological: Oriented to place person and time Skin: Intact, no lesions appreciated on gross exam A&P Assessment and plan (1) Elevated LFTs: 79-year-old female with tickborne illness currently on doxycycline Rocephin and as per the patient and her she has improved dramatically. Patient does not have any abdominal pain or other GI symptoms and has a benign abdomen on exam. CT abdomen pelvis did not any acute pathology and gallbladder ultrasound showed distended gallbladder without any evidence of cholecystitis. Discussed the findings with the patient and her , I will see her back in clinic in couple of weeks with repeat CBC and LFTs. Patient is keen to establish primary care locally and I recommended Dr. Tejada who is in [place] which is where she lives. Status: Acute Coding Level of Care Code Acute [employer] Visual [employer] Coordinator for Chg Fwd Diagnoses Elevated LFTs R79.89
[2020-01-22 07:11] VITALS: BP 125/64; PULSE 84; RESP 18; TEMP 37; O2SAT 92
[2020-01-22 08:20] LABS: Hematocrit 33.4 % (37.0-47.0); Hemoglobin 10.9 g/dL (11.5-15.3); Mean Corpuscular HGB Conc 32.6 g/dL (30.0-36.0); Mean Corpuscular Hemoglobin 29.2 pg (28.0-34.0); Mean Corpuscular Volume 89.5 fL (81-99); Mean Platelet Volume 12.2 fL (7.4-10.4); Platelet Count 124 10^3/cmm (130-400); Red Blood Count 3.73 10^6/uL (4.1-5.3); Red Cell Distribution Width 13.9 % (12.1-15.1)
[2020-01-22 08:37] LABS: Alanine Aminotransferase 176 U/L (0-33); Albumin Level 3.4 g/dL (3.5-5.2); Alkaline Phosphatase 323 IU/L (35-105); Anion Gap 12.3 (5-19); Aspartate Amino Transferase 249 U/L (0-32); Blood Urea Nitrogen 10 mg/dL (8-23); Calcium 8.7 mg/dL (8.5-10.5); Carbon Dioxide 28 mmol/L (22-29); Chloride 101 mmol/L (98-107); Globulin 2.8 g/dL (1.3-4.6); Glucose 122 mg/dL (65-115); Osmolality Calculated 286 mOsm/kg (285-295); Potassium 3.3 mmol/L (3.5-5.1); Sodium 138 mmol/L (136-145); Total Bilirubin 0.5 mg/dL (0.15-1.2); Total Protein 6.2 g/dL (6.6-8.7)
[2020-01-22] MEDS: ascorbic acid 500 mg Tablet PO (08:41)
[2020-01-22] MEDS: ferrous gluconate 324 mg Tablet PO (08:41)
[2020-01-22] MEDS: zinc gluconate 50 mg Tablet PO (08:41)
[2020-01-22] MEDS: doxycycline 100 mg Tablet PO (08:41)
[2020-01-22 08:55] VITALS: PULSE 90; O2SAT 97
[2020-01-22 09:07] LABS: Absolute Neutrophil 3.8 10^3/cmm (1.4-6.5); Absolute Segmented Neutrophil 3.5 10/cmm (1.6-7.1); Band Neutrophils Absolute 0.3 10^3/cmm (0.0-1.2); Lymphocytes 53 %; Monocytes Absolute 2.2 10^3/cmm (0.1-0.6); Platelet Estimate Normal (Normal); Segmented Neutrophils 25 %; Total Cells Counted 100 (0-100)
[2020-01-22 09:08] LABS: Eosinophils 0 %
--- NOTE | 2020-01-22 10:44 | PM.DCS ---
Discharge Providers Date of Admission: 01/17/20 15:09 Date of Discharge: January 22, 2020 Attending Provider at Admission: Jamar Matt MD Attending Provider at Discharge: Kaelyn Cerna DO Diagnoses at Discharge Discharge Diagnosis (1) Elevated LFTs: Status: Acute Reason for Visit Reason for Visit: TEMP, FATIGUE Hospital Course Hospital Course: Seen and evaluated in the emergency department noted to have concern for fever and fatigue along with transaminitis and fever. She was admitted for further evaluation started on broad-spectrum empiric antibiotics. She was noted to have concern for thrombocytopenia, transaminitis elevation, neutropenia and fever. She was tested for COVID-19 and it returned negative. She did have tick panel and respiratory viral panel sent out for further evaluation. She underwent peripheral smear and results remain pending. She had a liver ultrasound which showed gallbladder distention however she was asymptomatic and continued to show improvement therefore surgery recommended close outpatient follow-up. 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 Patient initially presented with diarrheal illness which also continued to resolve. Patient's platelet count continued to improve and was 124,000 on date of discharge she did not have any evidence of any bleeding and hemoglobin was stable. She had improvement of LFTs, AST improved from 1200 down to 200 and bilirubin normalized. Patient did not have any abdominal pain or chest pain on date of discharge. Discussed with her plan for discharge to home with close outpatient follow-up to establish care with Dr. Tejada along with follow-up from Dr. Neff, general surgery. Discussed with her plan for discharge to home with doxycycline, she verbalized understanding and agreed with plan reporting that she was feeling much better. Physical Exam Const: COMMON NORMALS: patient oriented x3 and alert GENERAL APPEARANCE: cooperative ORIENTATION/CONSCIOUSNESS: Yes awake, Yes oriented to person, Yes oriented to place and Yes oriented to time HENMT: COMMON NORMALS: normocephalic and atraumatic HEAD & SCALP: normocephalic and atraumatic Eye: COMMON NORMALS: Equal, round and reactive pupils present PUPIL: Yes Equal, round and reactive pupils present Neck/C-Spine: COMMON NORMALS: supple GENERAL: Yes normal visual inspection Resp: COMMON NORMALS: normal respiratory effort and clear to auscultation bilaterally EFFORT & INSPECTION: Yes able to speak in complete sentences AUSCULTATION: clear to auscultation bilaterally, no rhonchi and no wheezes Cardio: COMMON NORMALS: regular rate, regular rhythm and No murmurs present (Cardio) RATE: regular rate RHYTHM: regular rhythm GI: COMMON NORMALS: Soft to palpation and non-tender INSPECTION: No abdominal distension AUSCULTATION: Yes normoactive bowel sounds PALPATION: Yes Soft to palpation Extremity: COMMON NORMALS: no clubbing, cyanosis or edema and no calf tenderness Neuro: COMMON NORMALS: patient oriented x3, CN's II-XII intact bilaterally, moves all extremities and no focal motor deficits SENSORIUM/ORIENTATION: Yes alert, Yes oriented to person, Yes oriented to place and Yes oriented to time SPEECH: speech normal Psych: COMMON NORMALS: mental status grossly normal and cooperative Skin: COMMON NORMALS: no rashes or lesions noted GENERAL SKIN EXAM: no rashes or lesions noted Discharge Data Data Completed and Pending: Completed Studies During Hospitalization Category Date Time Status CT angio chest w abd pel w con Urge nt Cat Scan 01/17/20 13:07 Completed XR chest 1V shilo ble [id number] Urgent Exams 01/17/20 11:35 [place] [id number] Routin e Ultrasound 01/18/20 17:33 Completed US liver [id number] Ro utine Ultrasound 01/20/20 15:30 Completed Pending at discharge Category Date Time Status Blood Culture Sta t Lab 01/17/20 12:23 Results Respiratory Viral Panel PCR Stat Lab 01/17/20 18:00 Received Sputum Culture an d Gram Stain Stat Lab 01/17/20 15:04 Uncollected Labs from last 24 hours 01/22/20 01/22/20 01/17/20 08:10 08:10 15:24 WBC 14.0 H RBC 3.73 L Hgb 10.9 L Hct 33.4 L MCV 89.5 MCH 29.2 MCHC 32.6 RDW 13.9 Plt Count 124 L MPV 12.2 H Total Counted 100 Atypical Lymphs % 2.0 Absolute Neutrophi ls 3.8 Segmented Neutroph ils 25 Abs Segm Neuts (Ma n) 3.5 Band Neutrophils 2.0 Abs Band Neuts (Ma n) 0.3 Lymphocytes (Manua l) 53 Monocytes (Manual) 16.0 Absolute Monocytes 2.2 H Eosinophils (Manua l) 0 Absolute Eosinophi ls 0.0 Basophils (Manual) 0.0 Absolute Basophils 0.0 Metamyelocytes 2.0 Platelet Estimate Normal Sodium 138 Potassium 3.3 L Chloride 101 Carbon Dioxide 28 Anion Gap 12.3 BUN 10 Creatinine 0.6 GFR Calculation Not Reportable Glucose 122 H Calculated Osmolal ity 286 Calcium 8.7 Total Bilirubin 0.5 AST 249 H ALT 176 H Alkaline Phosphata se 323 H Total Protein 6.2 L Albumin 3.4 L Globulin 2.8 E. chaffeensis IgG Ab <1:64 E. chaffeensis IgM Ab <1:20 E. chaffeensis Int erp See note E. chaffeensis Com ment Not Reportable Rickettsia IgG Ab Not detected Rickettsia IgM Ab Not detected Vitals: Last Vital Signs Temp 98.6 F 01/22/20 07:11 Pulse 90 01/22/20 08:55 Resp 18 01/22/20 07:11 BP 125/64 01/22/20 07:11 Pulse Ox 97 01/22/20 08:55 Discharge Plan Discharge Patient Disposition: Home Condition: Stable Prescriptions: New doxycycline monohydrate 100 mg Tablet 100 mg PO BID 10 Days Qty: 20 RF: 0 Vitamin C 500 mg Tablet 500 mg PO DAILY 30 Days Qty: 30 RF: 0 ferrous gluconate 324 mg (37.5 mg iron) Tablet 324 mg PO BIDWM 30 Days Qty: 60 RF: 0 Continued senna 1 - 2 tab PO PRN PRN (Reason: Constipation) RF: 0 Held atorvastatin 40 mg tablet 40 mg PO DAILY RF: 0 Hold Instructions: Resume on 02/05/20. Discontinued simvastatin 20 mg tablet 40 mg PO DAILY RF: 0 Tylenol Extra Strength 500 mg Tablet 500 mg PO Q4H PRN (Reason: Fever) RF: 0 naproxen 500 mg Tablet 500 mg PO BID PRN (Reason: FEVER/PAIN) RF: 0 Discharge Orders: Discharge Order (Routine); Ordered 01/22/20 Ordered By: Kaelyn Cerna Referrals: Guillermo Neff MD [Physician] - 2 weeks (with CBC and LFT) Mone Tejada MD [Physician] - 4-7 days (Hospital follow-up, peripheral smear pathology follow-up, establish care) Discharge Diet: Advance as tolerated Discharge Activity: Increase activity as tolerated Activity Restrictions/Additional Instructions: Discharge to home with an additional 10 days of doxycycline, 100 mg to take twice daily Discharge to home with iron 324 mg twice daily along with vitamin C. This can cause your stools to become dark in color. If they become black or tarry like please call your physician or present to the ED. Follow-up with Dr. Tejada to establish care in 4 to 7 days. Follow-up with Dr. Neff in 2 weeks Follow-up with your primary care provider Call your physician or present to the ED for any acute illness or concern. Discharge Attestations Time Spent in Discharge Care*: greater than 30 min Specific Discharge Activities: Specific discharge activities: educating patient, educating and/or supporting family/caregiver, discussing with bilingual case manager/social workers/dc planners and documenting/other paperwork Quality Metrics Clinical Quality Measures During this hospital stay, did patient experience: None Coding Level of Care Code Acute Human Resources File Clerk for Chg Fwd Diagnoses Elevated LFTs R79.89
[2020-01-22 11:17] VITALS: BP 135/65; PULSE 82; RESP 18; TEMP 37.1; O2SAT 93
--- NOTE | 2020-01-22 11:27 | PC.SOCIAL ---
IMM Update Pg. 2 of IMM updated and reviewed with patient who verbalized understanding. Copy provided.
[2020-01-22 13:32] VITALS: BP 135/65; PULSE 82; RESP 18; TEMP 37.1; O2SAT 93
[2020-01-22 17:53] LABS: Adenovirus Not Detected (Not Detected); Human Metapneumovirus Not Detected (Not Detected); Human Parainflu Virus 1 Not Detected (Not Detected); Human Parainflu Virus 2 Not Detected (Not Detected); Human Parainflu Virus 3 Not Detected (Not Detected); Human Rsv A Not Detected (Not Detected); Influenza A Not Detected (Not Detected); Influenza B Not Detected (Not Detected); Rhinovirus/Enterovirus Not Detected (Not Detected)
== END 2020-01-22 13:05 | disposition home or self-care (01) | DRG 864 ==
LOC: ER 15:15 → MEDSURG 15:38
PROVIDERS: Emergency Medicine; Family Medicine; Admitting Provider Student in an Organized Health Care Education/Training Program; Visit Provider Family Medicine
DX: R50.9 Fever, unspecified (principal); A93.8 Other specified arthropod-borne viral fevers; E87.1 Hypo-osmolality and hyponatremia; A77.40 Ehrlichiosis, unspecified; C50.911 Malignant neoplasm of unspecified site of right female breast; Z90.11 Acquired absence of right breast and nipple; Z85.41 Personal history of malignant neoplasm of cervix uteri; E78.5 Hyperlipidemia, unspecified; J43.2 Centrilobular emphysema; I71.4 Abdominal aortic aneurysm, without rupture; D69.6 Thrombocytopenia, unspecified; E86.0 Dehydration; E87.6 Hypokalemia; D70.9 Neutropenia, unspecified; D64.9 Anemia, unspecified
CPT/HCPCS: 12345; 36415; 71045; 71275; 74177; 76705; 80053; 80500; 81000; 81001; 82274; 82310; 82550; 82607; 82728; 82746; 83010; 83540; 83550; 83605; 83615; 83630; 83690; 83880; 83970; 84145; 84443; 85007; 85025; 85027; 85045; 85378; 85384; 85610; 85651; 86140; 86225; 86235; 86308; 86403; 86618; 86666; 86705; 86706; 86709; 86757; 86803; 87040; 87086; 87340; 87400; 87426; 87449; 87506; 87635; 87641; 93970; 96375; 99284; J0456; J0610; J0696; J1940; J3475; J3480; J3490; J7030; J7050; Q9967

== ENCOUNTER 2020-01-30 11:54 | Outpatient (CLI) | payer MEDICARE, OTHER, SELFPAY ==
[2020-01-30 12:54] LABS: Alanine Aminotransferase 30 U/L (0-33); Albumin Level 3.8 g/dL (3.5-5.2); Alkaline Phosphatase 152 IU/L (35-105); Anion Gap 12.2 (5-19); Aspartate Amino Transferase 32 U/L (0-32); Blood Urea Nitrogen 8 mg/dL (8-23); Calcium 8.8 mg/dL (8.5-10.5); Carbon Dioxide 29 mmol/L (22-29); Chloride 102 mmol/L (98-107); Globulin 3.1 g/dL (1.3-4.6); Glucose 104 mg/dL (65-115); Lipase 57 U/L (13-60); Osmolality Calculated 287 mOsm/kg (285-295); Potassium 4.2 mmol/L (3.5-5.1); Sodium 139 mmol/L (136-145); Total Bilirubin 0.5 mg/dL (0.15-1.2); Total Protein 6.9 g/dL (6.6-8.7)
== END 2020-01-30 11:55 | disposition home or self-care (01) ==
LOC: LAB 12:04
PROVIDERS: PCP Family Medicine; Visit Provider Surgery
DX: R10.9 Unspecified abdominal pain (principal)
CPT/HCPCS: 36415; 80053; 83690

== ENCOUNTER → 2021-09-05 17:10 | Outpatient (BNVA) | payer MEDICARE, OTHER, SELFPAY | PROVIDERS: PCP Family Medicine; Visit Provider Nurse Practitioner Family | DX: R39.15 Urgency of urination (principal); R50.9 Fever, unspecified; R30.0 Dysuria; J43.9 Emphysema, unspecified; N39.0 Urinary tract infection, site not specified | CPT/HCPCS: 80053 ==

== ENCOUNTER → 2022-07-28 09:36 | Outpatient (BNVA) | payer MEDICARE, OTHER, SELFPAY | PROVIDERS: PCP Family Medicine; Visit Provider Nurse Practitioner Family | DX: R50.9 Fever, unspecified (principal) | CPT/HCPCS: 87400; 87426 ==